=== PATIENT | female | born 1955 ===

== ENCOUNTER 2017-08-30 09:27 | Observation (INO) | payer MEDICAID ==
[2017-08-30 09:29] VITALS: BMI 34.7
--- NOTE | 2017-08-30 10:09 | ED PDOC ---
HPI: Abdomen Time Seen by Provider: 08/30/17 09:34 Chief Complaint (Nursing): Abdominal Pain Chief Complaint (Provider): Urinary urgency associated abdominal pain History Per: Patient History/Exam Limitations: no limitations Onset/Duration Of Symptoms: Days (x2) Additional Complaint(s): Ly Caraballo is a 62 year old female with a past medical history of diverticular disease presenting to the ED for an evaluation of urinary urgency associated with lower abdominal pain occurring for 2 days prior to arrival. She denies fever, diarrhea, or vomiting. PMD: Crow Vasques MD Past Medical History Reviewed: Historical Data, Nursing Documentation, Vital Signs Vital Signs: Last Vital Signs Temp 98.5 F 08/30/17 09:43 Pulse 112 H 08/30/17 09:43 Resp 18 08/30/17 09:43 BP 126/71 08/30/17 09:43 Pulse Ox 96 08/30/17 12:21 - Medical History PMH: Asthma, Diabetes, Diverticulitis, HTN, Hypercholesterolemia - Surgical History Surgical History: Cholecystectomy - Family History Family History: States: Unknown Family Hx - Social History Current smoker - smoking cessation education provided: No Ex-Smoker (has not smoked in the last 12 months): No Alcohol: None Drugs: Denies - Home Medications Home Medications: Ambulatory Orders Medication Instructions Recorded Acetaminophen with Codeine 1 tab PO Q8H #10 tab 02/03/15 [Tylenol with Codeine No. 3 300 mg-30 mg] Enalapril Maleate [Vasotec] 20 mg PO DAILY 02/03/15 Indapamide [Indapamide] 2.5 mg PO DAILY 02/03/15 Metformin Hydrochloride [Metformin] 500 mg PO DAILY 02/03/15 - Allergies Allergies/Adverse Reactions: Allergies Allergy/AdvReac Type Severity Reaction Status Date / Time Penicillins Allergy Intermediate ITCHING Verified 08/30/17 10:18 tramadol AdvReac ITCHING Verified 08/30/17 10:18 Review of Systems ROS Statement: Except As Marked, All Systems Reviewed And Found Negative Constitutional: Negative for: Fever Gastrointestinal: Positive for: Abdominal Pain (lower abdominal pain ). Negative for: Vomiting, Diarrhea Genitourinary Female: Positive for: Frequency (urinary urgency) Physical Exam - Reviewed Nursing Documentation Reviewed: Yes Vital Signs Reviewed: Yes - Physical Exam Appears: Positive for: Non-toxic, No Acute Distress Head Exam: Positive for: ATRAUMATIC, NORMOCEPHALIC Skin: Positive for: Normal Color, Warm, Dry Eye Exam: Positive for: Normal appearance, EOMI ENT: Positive for: Normal ENT Inspection Neck: Positive for: Normal, Painless ROM Cardiovascular/Chest: Positive for: Regular Rate, Rhythm, Chest Non Tender Respiratory: Positive for: Normal Breath Sounds. Negative for: Respiratory Distress Gastrointestinal/Abdominal: Positive for: Soft, Tenderness ( suprapubictenderness ) Back: Negative for: L CVA Tenderness, R CVA Tenderness Extremity: Positive for: Normal ROM. Negative for: Deformity Neurologic/Psych: Positive for: Alert, Oriented (x3). Negative for: Motor/ Sensory Deficits - Laboratory Results Result Diagrams: 08/30/17 10:27 08/30/17 10:27 - ECG O2 Sat by Pulse Oximetry: 96 (RA) Pulse Ox Interpretation: Normal Medical Decision Making Medical Decision Making: Time: 09:34 Impression: Urinary urgency associated with suprapubic tenderness Plan: * Urine Culture * Urinalysis * CMP * CBC (with differential) * Peak Flow Pre/Post Tx * Albuterol 0.083% Inhal Roxanne (2.5 mg/3 ml) UD 2.5 mg INH * KayeXALATE Susp 30 gm PO * CT Abd & Pelvis W/O PO or IV Cont * Reevaluation Scribe Attestation: Documented by Christen Wagoner, acting as a scribe for Nader Lewis MD. Provider Scribe Attestation: All medical record entries made by the Scribe were at my direction and personally dictated by me. I have reviewed the chart and agree that the record accurately reflects my personal performance of the history, physical exam, medical decision making, and the department course for this patient. I have also personally directed, reviewed, and agree with the discharge instructions and disposition. Disposition - Clinical Impression Clinical Impression: Dehydration, CKD (chronic kidney disease), Hyperkalemia - Patient ED Disposition Is Patient to be Admitted: Yes - Disposition Disposition Time: 12:24 Condition: FAIR Forms: [facility] (Pashto) - Pt Status Changed To: Hospital Disposition Of: Observation - POA Present On Arrival: None
[2017-08-30] MEDS ORDERED: Iohexol 300 100 ML IJ ONE (10:20)
[2017-08-30] MEDS ORDERED: Sodium Chloride 0.9% 50 ML IV ONE (10:20)
[2017-08-30 10:37] LABS: BASO # 0.1 K/uL (0.0-0.2); BASO % 1.2 % (0.0-2.0); EOS # 0.3 K/uL (0.0-0.7); EOS % 2.3 % (0.0-4.0); HEMATOCRIT 37.4 % (34.0-47.0); LYMPH # 2.7 K/uL (1.0-4.3); LYMPH % 22.4 % (20.0-40.0); MEAN CELL VOLUME 87.2 fl (81.0-99.0); MEAN CORPUSCULAR HEMOGLOBIN 28.5 pg (27.0-31.0); MEAN CORPUSCULAR HGB CONC 32.6 g/dL (33.0-37.0); MEAN PLATELET VOLUME 8.4 fl (7.2-11.7); MONO % 7.8 % (0.0-10.0); NEUT # 8.1 K/uL (1.8-7.0); NEUT % 66.3 % (50.0-75.0); NRBC % 0.1 % (0.0-0.0); RED CELL DISTRIBUTION WIDTH 14.8 % (11.5-14.5); WHITE BLOOD COUNT 12.2 K/uL (4.8-10.8)
[2017-08-30 10:38] LABS: URINE BACTERIA RARE (<OCC); URINE BILIRUBIN NEGATIVE (NEGATIVE); URINE BLOOD SMALL (NEGATIVE); URINE COLOR YELLOW (YELLOW); URINE GLUCOSE (UA) NEG (Normal); URINE KETONE NEGATIVE (NEGATIVE); URINE LEUKOCYTE ESTERASE TRACE Leu/uL (Negative); URINE PROTEIN 100 mg/dL (NEGATIVE); URINE UROBILINOGEN 0.2-1.0 mg/dL (0.2-1.0)
[2017-08-30 10:50] LABS: RBC URINE 7 /hpf (0-3); WBC URINE 9 /hpf (0-5)
[2017-08-30 10:59] LABS: ALB/GLOB RATIO 1.3 (1.0-2.1); BILIRUBIN,TOTAL 0.6 mg/dl (0.2-1.3); CALCIUM 9.3 mg/dL (8.4-10.2); POTASSIUM 5.8 MMOL/L (3.6-5.0); TOTAL PROTEIN 7.6 G/DL (6.3-8.2)
--- NOTE | 2017-08-30 12:10 | CT ---
PROCEDURE: CT Abdomen and Pelvis without intravenous contrast HISTORY: r/o kidney stone COMPARISON: 2014. TECHNIQUE: Technique. Contrast Dose: Radiation dose: Total exam DLP = mGy-cm. This CT exam was performed using one or more of the following dose reduction techniques: Automated exposure control, adjustment of the mA and/or kV according to patient size, and/or use of iterative reconstruction technique. FINDINGS: LOWER THORAX: Unremarkable. LIVER: Unremarkable. No gross lesion or ductal dilatation. GALLBLADDER AND BILE DUCTS: Gallbladder resected.. PANCREAS: Unremarkable. No gross lesion or ductal dilatation. SPLEEN: Unremarkable. ADRENALS: Unremarkable. No mass. KIDNEYS AND URETERS: Unremarkable. No hydronephrosis. No solid mass. VASCULATURE: Unremarkable. No aortic aneurysm. BOWEL: Colonic diverticulosis.. No obstruction. No gross mural thickening. APPENDIX: Unremarkable. Normal appendix. PERITONEUM: Unremarkable. No free fluid. No free air. LYMPH NODES: Unremarkable. No enlarged lymph nodes. BLADDER: Unremarkable. REPRODUCTIVE: Uterus resected. me. BONES: No acute fracture. OTHER FINDINGS: None. IMPRESSION: Diverticulosis. No acute pathology..
[2017-08-30] MEDS ORDERED: Albuterol 0.083% Inhal Sol (2.5 mg/3 mL) UD INH STA (12:16)
[2017-08-30] MEDS ORDERED: Sod Polystyrene Sulf 15 gm/60 ml Susp PO ONE (12:16)
[2017-08-30] MEDS ORDERED: Sodium Chloride 0.9% 1,000 ML IV STA (12:21)
[2017-08-30] MEDS ORDERED: Albuterol 0.083% Inhal Sol (2.5 mg/3 mL) UD ONE (12:56)
[2017-08-30] MEDS ORDERED: Sod Polystyrene Sulf 15 gm/60 ml Susp ONE (12:57)
--- NOTE | 2017-08-30 14:38 | US ---
PROCEDURE: HISTORY: acute on chronic renal dz COMPARISON: TECHNIQUE: FINDINGS: The right and left kidney measure 10.2 and 9.1 centimeters respectively without hydronephrosis or renal calculi. The renal cortices are homogeneous but somewhat echogenic suggesting underlying medical renal disease. The urinary bladder is unremarkable. IMPRESSION: Mild bilateral increased cortical echogenicity suggesting medical renal disease.
--- NOTE | 2017-08-30 14:55 | RAD ---
HISTORY: CKD COMPARISON: No prior. TECHNIQUE: Chest PA and lateral FINDINGS: LUNGS: No active pulmonary disease. PLEURA: No significant pleural effusion identified. No pneumothorax apparent. CARDIOVASCULAR: Normal. OSSEOUS STRUCTURES: No significant abnormalities. VISUALIZED UPPER ABDOMEN: Normal. OTHER FINDINGS: None. IMPRESSION: No active disease.
--- NOTE | 2017-08-30 18:42 | CP.PCM.CON ---
History of Present Illness - History of Present Illness History of Present Illness: Initial Nephrology Consultation: Assessment: Stable possible UTI ? Acute Kidney Injury (N17.9) possible due to dehydration Hypertensive Chronic Kidney Disease (I12.9) Chronic Kidney Disease (N18.3) Stage 3 with proteinuria (R80.9) likely due to HTN Hyperkalemia, HTN (I12.9) DM, diverticulosis Plan No acute need for renal replacement therapy at this time. Hypertension control with meds as ordered. No ACEI/ARB due to elevated K. agree with medical management with kayexylate Monitor Input/Output, daily weights and renal function with basic metabolic panel continue with IVF. low K diet Check urine spot protein/creatinine and albumin/creatinine ratio Dose meds/antibiotics for reduced GFR. Avoid fleets enema/magnesium based laxatives. Avoid nephrotoxins/NSAIDs/ iodinated contrast (unless needed emergently) Glycemic control Further work up/management as per primary team Thanks for allowing me to participate in care of your patient. Will follow patient with you. Please call if any Qs Dr Anselmo Pollock Office: [phone] Chief Complaint; urinary urgency Reason for consult: SHEREE and hyperkalemia HPI: Pt is a 62 y/o F with hx of diabetes Mellitus ( 5 years), hypertension (5 years), diverticulosis presented with complaints of urinary symptoms as urgency and lower abdomen pain/pressure like sensation for last 1-2 days which is not improving renal consulted as K 5.8 and Cr 1.4. hasn't eaten all day today Denies chest pain, palpitation, shortness of breath, leg swelling Denies blood or bubbles in urine. has urinary complaints Denies OTC/herbal meds or NSAIDs No recent iodinated contrast exposure. No obvious episodes of low BP. ROS: Constitutional Symptoms: Denies fever. No chills. No Recent Weight Changes Eyes: denies change in vision, denies watery eyes, denies double vision Ears/Nose/Mouth/Throat: Denies Abnormal Taste. No Bad breath no Bad Taste. Cardiovascular: No chest pain. There is no shortness of breath. No palpitations. Pulmonary: No shortness of breath no cough. Gastrointestinal: c/o lower abdominal pain No nausea. No vomiting. Denies change in bowel habits. Denies Bleeding Genitourinary: No Change in force of strain when urinating. c/o increase in urinary frequency. c/o pain while urinating. Denies blood in urine. Neurological: Denies headaches. No dizziness. Denies loss of balance. Denies weakness, denies tingling/numbness Dermatological: No Rash or Bruising or ulcers. Psychiatric: Denies Anxiety. No depression. Denies hallucinations. Rheumatological: No joint pain. Denies Joint swelling Endocrine: Denies tiredness/Fatigue denies Heat/Cold Intolerance. All other negative Physical Examination: General Appearance: Comfortable, in no acute respiratory distress, co-operative . Vitals reviewed and noted as below Head; Atraumatic, normocephalic ENT: no ulcers no thrush. Tongue is midline. Oropharynx: no rash or ulcers. EYES: Pupils are equal, round and reactive to light accommodation. Eye muscles and extraocular movement intact. Sclera is anicteric. Neck; supple no lymphadenopathy, no thyromegaly or bruit Lungs: Normal respiratory rate/effort. Breath sounds bilateral equal and clear Heart: Normal rate. s1s2 normal. No rub or gallop. Extremities: no edema. No varicose veins Neurological: Patient is alert, awake and oriented to person, place and time. No focal deficit. Strength bilateral appropriate and equal Skin: Warm and dry. Normal turgor. No rash. Palpitation: Normal elasticity for age Abdomen: Abdomen is soft. Bowel sounds +. There is suprapubic abdominal tenderness, no guarding/rigidity no organomegaly Psych: normal insight and normal affect/mood MSK: no joint tenderness or swelling. Digits and nails normal, no deformity : kidney or bladder not palpable Labs/imaging/EKG reviewed. Past medical history, past surgical history, family history, social history, allergy reviewed and noted as below Family hx: no hx of CKD. Rest non-contributory UA: small blood and 100 protein with bacteria renal sono: increased echogenicity s/o medical renal disease cr 1.2 in 2015 Past Patient History - Past Social History Alcohol: None Drugs: Denies - CARDIAC Hx Cardiac Disorders: Yes (HTN, hypercholesterolemia) - PULMONARY Hx Respiratory Disorders: Yes (Asthma) - ENDOCRINE/METABOLIC Hx Endocrine Disorders: Yes (DM, Diverticulosis) - GASTROINTESTINAL Hx Diverticulitis: Yes - PSYCHIATRIC Hx Substance Use: No - SURGICAL HISTORY Hx Cholecystectomy: Yes - ANESTHESIA Hx Anesthesia: Yes Hx Anesthesia Reactions: No Meds Allergies/Adverse Reactions: Allergies Allergy/AdvReac Type Severity Reaction Status Date / Time Penicillins Allergy Intermediate ITCHING Verified 08/30/17 10:18 tramadol AdvReac ITCHING Verified 08/30/17 10:18 - Medications Medications: Current Medications Sodium Chloride (Sodium Chloride 0.9%) 1,000 mls @ 100 mls/hr IV .Q10H STA Stop: 08/30/17 22:20 Last Admin: 08/30/17 13:00 Dose: 100 mls/hr Sodium Chloride (Sodium Chloride 0.9%) 1,000 mls @ 100 mls/hr IV .Q10H YUMIKO Stop: 08/31/17 13:02 Metformin HCl (Glucophage) 500 mg PO DAILY YUMIKO Results - Vital Signs Recent Vital Signs: Last Vital Signs Temp 98.3 F 08/30/17 16:18 Pulse 108 H 08/30/17 16:18 Resp 20 08/30/17 16:18 BP 114/70 08/30/17 16:18 Pulse Ox 93 L 08/30/17 16:18 - Labs Result Diagrams: 08/30/17 10:27 08/30/17 10:27 Labs: Laboratory Results - last 24 hr 08/30/17 08/30/17 08/30/17 10:27 10:27 10:27 WBC 12.2 H RBC 4.28 Hgb 12.2 Hct 37.4 MCV 87.2 D MCH 28.5 MCHC 32.6 L RDW 14.8 H Plt Count 243 MPV 8.4 Neut % (Auto) 66.3 Lymph % (Auto) 22.4 [place] % (Auto) 7.8 Eos % (Auto) 2.3 Baso % (Auto) 1.2 Neut # 8.1 H Lymph # 2.7 [place] # 1.0 H Eos # 0.3 Baso # 0.1 Sodium 143 Potassium 5.8 H Chloride 108 H Carbon Dioxide 25 Anion Gap 16 BUN 38 H Creatinine 1.4 H Est GFR ( Amer) 46 Est GFR (Non-Af Amer) 38 Random Glucose 131 H Calcium 9.3 Total Bilirubin 0.6 AST 21 ALT 37 Alkaline Phosphatase 108 Total Protein 7.6 Albumin 4.3 Globulin 3.3 Albumin/Globulin Ratio 1.3 Urine Color Yellow Urine Clarity Slighty-cloudy Urine pH 5.0 Ur Specific [place] 1.019 Urine Protein 100 Urine Glucose (UA) Neg Urine Ketones Negative Urine Blood Small Urine Nitrate Negative Urine Bilirubin Negative Urine Urobilinogen 0.2-1.0 Ur Leukocyte Esterase Trace Urine RBC (Auto) 7 H Urine Microscopic WBC 9 H Ur Squamous Epith Cells 2 Urine Bacteria Rare
[2017-08-30] MEDS ORDERED: Oxycodone/Acetaminophen 5/325 mg Tab PO PRN ×2 (20:37→20:40)
[2017-08-30] MEDS ORDERED: DiphenhydrAMINE 50 mg/ml Inj IVP PRN (20:40)
[2017-08-30] MEDS: Sodium Chloride 0.9% 1,000 ML IV SCH (23:32)
[2017-08-31 00:49] VITALS: RESP 18
[2017-08-31 08:12] LABS: BASO # 0.1 K/uL (0.0-0.2); BASO % 0.4 % (0.0-2.0); EOS # 0.2 K/uL (0.0-0.7); EOS % 1.4 % (0.0-4.0); HEMATOCRIT 33.9 % (34.0-47.0); LYMPH # 1.8 K/uL (1.0-4.3); LYMPH % 14.6 % (20.0-40.0); MEAN CELL VOLUME 85.9 fl (81.0-99.0); MEAN CORPUSCULAR HEMOGLOBIN 28.3 pg (27.0-31.0); MEAN CORPUSCULAR HGB CONC 32.9 g/dL (33.0-37.0); MEAN PLATELET VOLUME 8.5 fl (7.2-11.7); MONO % 8.5 % (0.0-10.0); NEUT # 9.2 K/uL (1.8-7.0); NEUT % 75.1 % (50.0-75.0); NRBC % 0.1 % (0.0-0.0); RED CELL DISTRIBUTION WIDTH 14.8 % (11.5-14.5); WHITE BLOOD COUNT 12.2 K/uL (4.8-10.8)
[2017-08-31] MEDS: Sodium Chloride 0.9% 1,000 ML IV SCH (08:16)
[2017-08-31 08:31] VITALS: O2SAT 95
[2017-08-31 08:38] LABS: ALB/GLOB RATIO 1.3 (1.0-2.1); BILIRUBIN,TOTAL 0.8 mg/dl (0.2-1.3); CALCIUM 8.8 mg/dL (8.4-10.2); POTASSIUM 4.6 MMOL/L (3.6-5.0); TOTAL PROTEIN 6.8 G/DL (6.3-8.2)
--- NOTE | 2017-08-31 10:00 | CP.PCM.HP ---
History of Present Illness - History of Present Illness History of Present Illness: pt admitted for acute on ckd. also w/ lower abd pain in the location of her diverticular dz which she is scheduled for surgical repair/hemicolectomy at [facility]. at present. pain controlled. no f/c, n/v/d. bw improved bun, k normal. cr about same. us noted. case d/c w/ dr lauren. Present on Admission - Present on Admission Any Indicators Present on Admission: No Review of Systems - Gastrointestinal Gastrointestinal: As Per HPI, Abdominal Pain Past Patient History - Past Medical History & Family History Past Medical History?: Yes - Past Social History Alcohol: None Drugs: Denies - CARDIAC Hx Cardiac Disorders: Yes (HTN, hypercholesterolemia) - PULMONARY Hx Respiratory Disorders: Yes (Asthma) - NEUROLOGICAL Hx Neurological Disorder: No - HEENT Hx HEENT Problems: No - RENAL Hx Chronic Kidney Disease: No - ENDOCRINE/METABOLIC Hx Endocrine Disorders: Yes (DM, Diverticulosis) - HEMATOLOGICAL/ONCOLOGICAL Hx Blood Disorders: No Hx AIDS: No Hx Human Immunodeficiency Virus (HIV): No - INTEGUMENTARY Hx Dermatological Problems: No - MUSCULOSKELETAL/RHEUMATOLOGICAL Hx Musculoskeletal Disorders: No Hx Falls: No - GASTROINTESTINAL Hx Diverticulitis: Yes - GENITOURINARY/GYNECOLOGICAL Hx Genitourinary Disorders: No - PSYCHIATRIC Hx Substance Use: No - SURGICAL HISTORY Hx Cholecystectomy: Yes - ANESTHESIA Hx Anesthesia: Yes Hx Anesthesia Reactions: No Meds Home Medications: Home Medication List Medication Instructions Recorded Confirmed Type levoFLOXacin [Levaquin] 250 mg PO DAILY #1 tab 08/31/17 Rx Allergies/Adverse Reactions: Allergies Allergy/AdvReac Type Severity Reaction Status Date / Time Penicillins Allergy Intermediate ITCHING Verified 08/30/17 10:18 tramadol AdvReac ITCHING Verified 08/30/17 10:18 Physical Exam - Constitutional Appears: Well, Non-toxic, No Acute Distress - Head Exam Head Exam: ATRAUMATIC, NORMAL INSPECTION, NORMOCEPHALIC - Eye Exam Eye Exam: EOMI, Normal appearance, PERRL Pupil Exam: NORMAL ACCOMODATION, PERRL - ENT Exam ENT Exam: Mucous Membranes Moist, Normal Exam - Neck Exam Neck exam: Positive for: Normal Inspection - Respiratory Exam Respiratory Exam: Clear to Auscultation Bilateral, NORMAL BREATHING PATTERN - Cardiovascular Exam Cardiovascular Exam: REGULAR RHYTHM - GI/Abdominal Exam GI & Abdominal Exam: Normal Bowel Sounds, Soft, Tenderness Additional comments: suprapubic - Extremities Exam Extremities exam: Positive for: full ROM, normal capillary refill, normal inspection, pedal pulses present - Back Exam Back exam: NORMAL INSPECTION - Neurological Exam Neurological exam: Alert, CN II-XII Intact, Normal Gait, Oriented x3, Reflexes Normal - Psychiatric Exam Psychiatric exam: Normal Affect, Normal Mood - Skin Skin Exam: Dry, Intact, Normal Color, Warm Results - Vital Signs Recent Vital Signs: Last Vital Signs Temp 98.7 F 08/31/17 08:00 Pulse 113 H 08/31/17 08:00 Resp 18 08/31/17 08:00 BP 123/78 08/31/17 08:00 Pulse Ox 95 08/31/17 08:00 - Labs Result Diagrams: 08/31/17 06:30 08/31/17 06:30 Labs: Laboratory Results - last 24 hr 08/30/17 08/30/17 08/30/17 10:27 10:27 10:27 WBC 12.2 H RBC 4.28 Hgb 12.2 Hct 37.4 MCV 87.2 D MCH 28.5 MCHC 32.6 L RDW 14.8 H Plt Count 243 MPV 8.4 Neut % (Auto) 66.3 Lymph % (Auto) 22.4 [place] % (Auto) 7.8 Eos % (Auto) 2.3 Baso % (Auto) 1.2 Neut # 8.1 H Lymph # 2.7 [place] # 1.0 H Eos # 0.3 Baso # 0.1 Sodium 143 Potassium 5.8 H Chloride 108 H Carbon Dioxide 25 Anion Gap 16 BUN 38 H Creatinine 1.4 H Est GFR ( Amer) 46 Est GFR (Non-Af Amer) 38 POC Glucose (mg/dL) Random Glucose 131 H Serum Osmolality Calcium 9.3 Total Bilirubin 0.6 AST 21 ALT 37 Alkaline Phosphatase 108 Total Protein 7.6 Albumin 4.3 Globulin 3.3 Albumin/Globulin Ratio 1.3 Urine Color Yellow Urine Clarity Slighty-cloudy Urine pH 5.0 Ur Specific [place] 1.019 Urine Protein 100 Urine Glucose (UA) Neg Urine Ketones Negative Urine Blood Small Urine Nitrate Negative Urine Bilirubin Negative Urine Urobilinogen 0.2-1.0 Ur Leukocyte Esterase Trace Urine RBC (Auto) 7 H Urine Microscopic WBC 9 H Ur Squamous Epith Cells 2 Urine Bacteria Rare Urine Osmolality 08/31/17 08/31/17 08/31/17 06:11 06:30 06:30 WBC 12.2 H RBC 3.95 Hgb 11.2 L Hct 33.9 L MCV 85.9 MCH 28.3 MCHC 32.9 L RDW 14.8 H Plt Count 239 MPV 8.5 Neut % (Auto) 75.1 H Lymph % (Auto) 14.6 L [place] % (Auto) 8.5 Eos % (Auto) 1.4 Baso % (Auto) 0.4 Neut # 9.2 H Lymph # 1.8 [place] # 1.0 H Eos # 0.2 Baso # 0.1 Sodium 143 Potassium 4.6 Chloride 108 H Carbon Dioxide 26 Anion Gap 14 BUN 28 H Creatinine 1.3 H Est GFR ( Amer) 50 Est GFR (Non-Af Amer) 41 POC Glucose (mg/dL) 131 H Random Glucose 150 H Serum Osmolality Calcium 8.8 Total Bilirubin 0.8 AST 18 ALT 30 Alkaline Phosphatase 100 Total Protein 6.8 Albumin 3.8 Globulin 2.9 Albumin/Globulin Ratio 1.3 Urine Color Urine Clarity Urine pH Ur Specific [place] Urine Protein Urine Glucose (UA) Urine Ketones Urine Blood Urine Nitrate Urine Bilirubin Urine Urobilinogen Ur Leukocyte Esterase Urine RBC (Auto) Urine Microscopic WBC Ur Squamous Epith Cells Urine Bacteria Urine Osmolality 08/31/17 08/31/17 06:30 07:01 WBC RBC Hgb Hct MCV MCH MCHC RDW Plt Count MPV Neut % (Auto) Lymph % (Auto) [place] % (Auto) Eos % (Auto) Baso % (Auto) Neut # Lymph # [place] # Eos # Baso # Sodium Potassium Chloride Carbon Dioxide Anion Gap BUN Creatinine Est GFR ( Amer) Est GFR (Non-Af Amer) POC Glucose (mg/dL) Random Glucose Serum Osmolality 309 H Calcium Total Bilirubin AST ALT Alkaline Phosphatase Total Protein Albumin Globulin Albumin/Globulin Ratio Urine Color Urine Clarity Urine pH Ur Specific [place] Urine Protein Urine Glucose (UA) Urine Ketones Urine Blood Urine Nitrate Urine Bilirubin Urine Urobilinogen Ur Leukocyte Esterase Urine RBC (Auto) Urine Microscopic WBC Ur Squamous Epith Cells Urine Bacteria Urine Osmolality 461 Assessment & Plan (1) DVT prophylaxis Assessment and Plan: scd and ae hose ambulation Status: Acute (2) CKD (chronic kidney disease) Assessment and Plan: improved w/ kayexalate, fluids for dc to f/u nephro outpt Status: Acute (3) Dehydration Assessment and Plan: improved w/ ivf Status: Acute (4) Hyperkalemia Assessment and Plan: improved w/ meds, fluids Status: Acute (5) HTN (hypertension) Assessment and Plan: lisinopril dc hold meds for now as bp controlled ?? acei cause of hyperkalemia Status: Acute Decision To Admit - Pt Status Changed To: Hospital Disposition Of: Observation - . Bed Request Type: Telemetry Admitting Physician: Jerome Arnold
[2017-08-31 12:05] VITALS: BP 118/75; PULSE 109; TEMP 98.3
--- NOTE | 2017-08-31 14:19 | CARD ---
APPROVED REPORT EKG Measurement Heart [id number] [id number] <Conclusion> Normal sinus rhythm Normal ECG
== END 2017-08-31 14:31 | disposition home or self-care (01) ==
LOC: H.ER 09:27 → H.ERHOLD 12:22 → H.TEL 15:18
PROVIDERS: ADMIT Family Medicine; ATTEND Family Medicine
DX: N28.9 Disorder of kidney and ureter, unspecified (principal); R39.15 Urgency of urination; I12.9 Hypertensive chronic kidney disease with stage 1 through stage 4 chronic kidney disease, or unspecified chronic kidney disease; N18.3 Chronic kidney disease, stage 3 (moderate); E11.22 Type 2 diabetes mellitus with diabetic chronic kidney disease; E86.0 Dehydration; K57.90 Diverticulosis of intestine, part unspecified, without perforation or abscess without bleeding; E87.5 Hyperkalemia; Z88.6 Allergy status to analgesic agent; Z88.0 Allergy status to penicillin; J45.909 Unspecified asthma, uncomplicated; E78.00 Pure hypercholesterolemia, unspecified
CPT/HCPCS: 36415; 71020; 74176; 76770; 80053; 81003; 82948; 83930; 83935; 85025; 87086; 93005; 99285; G0378; J7040; Q9967

== ENCOUNTER 2018-03-23 19:25 | Inpatient (IN) | payer MEDICAID ==
[2018-03-23 19:25] VITALS: BMI 34.7
[2018-03-23] MEDS ORDERED: Sodium Chloride 0.9% 1,000 ML IV STA (20:17)
--- NOTE | 2018-03-23 20:21 | ED PDOC ---
HPI: Chest Pain Time Seen by Provider: 03/23/18 20:06 Chief Complaint (Nursing): Chest Pain Chief Complaint (Provider): chest pain History Per: Patient, Family History/Exam Limitations: no limitations Onset/Duration Of Symptoms: Days (2), Waxing/Waning Current Symptoms Are (Timing): Still Present Quality: "Pain" Additional Complaint(s): 62 y/o female presents for evaluation of midsternal chest pain x 2 days. Associated shortness of breath. Patient states pain radiates from chest to upper back, left side of neck and occasionally from upper abdomen. Patient reports low grade temp of 100F yesterday. Patient was evaluated by PMD today and advised to come to ED for chest xray. Denies headache, dizziness, extremity numbness/weakness, vision changes, cough, congestion, vomiting, urinary symptoms, changes in bowel movements. Patient was scheduled for colostomy reversal tomorrow but PMD cancelled it due to current symptoms. PMD: Dr. Terri Hanna Past Medical History Reviewed: Historical Data, Nursing Documentation, Vital Signs Vital Signs: Last Vital Signs Temp 99.1 F 03/23/18 19:35 Pulse 121 H 03/23/18 19:35 Resp 16 03/23/18 19:35 BP 133/79 03/23/18 19:35 Pulse Ox 96 03/23/18 23:17 - Medical History PMH: Asthma, Diabetes, Diverticulitis, HTN, Hypercholesterolemia Denies: HIV, Chronic Kidney Disease - Surgical History Surgical History: Cholecystectomy - Family History Family History: States: Unknown Family Hx - Social History Current smoker - smoking cessation education provided: No Ex-Smoker (has not smoked in the last 12 months): Yes Alcohol: None Drugs: Denies - Allergies Allergies/Adverse Reactions: Allergies Allergy/AdvReac Type Severity Reaction Status Date / Time Penicillins Allergy Intermediate ITCHING Verified 08/30/17 10:18 tramadol AdvReac ITCHING Verified 08/30/17 10:18 Review of Systems ROS Statement: Except As Marked, All Systems Reviewed And Found Negative Cardiovascular: Positive for: Chest Pain Respiratory: Positive for: Shortness of Breath Physical Exam - Reviewed Nursing Documentation Reviewed: Yes Vital Signs Reviewed: Yes - Physical Exam Appears: Positive for: Well, Non-toxic, No Acute Distress Head Exam: Positive for: ATRAUMATIC, NORMAL INSPECTION, NORMOCEPHALIC Skin: Positive for: Normal Color Eye Exam: Positive for: Normal appearance ENT: Positive for: Normal ENT Inspection Cardiovascular/Chest: Positive for: Regular Rate, Rhythm Respiratory: Positive for: Normal Breath Sounds Gastrointestinal/Abdominal: Positive for: Bowel Sounds, Soft, Other (colostomy bag right abdomen; no erythema, drainage, tenderness noted). Negative for: Tenderness Back: Positive for: Normal Inspection Extremity: Positive for: Normal ROM Neurologic/Psych: Positive for: Alert, Oriented - Laboratory Results Result Diagrams: 03/23/18 20:49 03/23/18 20:49 - ECG ECG: Positive for: Viewed By Me (reviewed by ED attending) ECG Rhythm: Positive for: Sinus Tachycardia O2 Sat by Pulse Oximetry: 96 Pulse Ox Interpretation: Normal - Radiology X-Ray: Viewed By Me X-Ray Interpretation: No Acute Disease - Progress ED Course And Treament: labs, urine, flu, strep, chest xray, ekg, IV fluids EXAM: CT Angiography Chest With Intravenous Contrast CLINICAL HISTORY: The patient is a 62 years female; Pain; Chest pain; Type not specified; Patient HX: Asthma; Additional info: Chest pain, SOB 03/23/2018 9:32 PM TECHNIQUE: Axial computed tomographic angiography images of the chest with intravenous contrast using pulmonary embolism protocol. All CT scans at this facility use one or more dose reduction techniques, viz.: automated exposure control; ma/kV adjustment per patient size (including targeted exams where dose is matched to indication; i.e. head); or iterative reconstruction technique. MIP reconstructed images were created and reviewed. Coronal and sagittal reformatted images were created and reviewed. CONTRAST: 70 mL of [id number] administered intravenously. COMPARISON: Not available FINDINGS: Pulmonary arteries: No evidence of acute pulmonary embolism up to the major segmental level.One or more very small peripheral pulmonary emboli cannot be excluded. Correlate clinically. Aorta: No acute findings. No thoracic aortic aneurysm. Lungs: Patchy and streaky opacities in the right lung base could either represent subsegmental atelectasis and/or developing infiltrate. Correlate clinically. Granuloma in the right upper lobe Pleural space: Small to moderate left pleural effusion with adjacent compressive atelectasis and/or infiltrates. Correlate clinically. No pneumothorax. Heart: Small pericardial effusion. No evidence of RV dysfunction. Bones/joints: Spondylosis. No dislocation. Soft tissues: Unremarkable. Lymph nodes: Unremarkable. No enlarged lymph nodes. IMPRESSION: 1. No evidence of acute pulmonary embolism up to the major segmental level.One or more very small peripheral pulmonary emboli cannot be excluded. Correlate clinically. 2. Small to moderate left pleural effusion with adjacent compressive atelectasis and/or infiltrates. Correlate clinically. 3. Patchy and streaky opacities in the right lung base could either represent subsegmental atelectasis and/or developing infiltrate. Correlate clinically. 4. Small pericardial effusion. IV Levaquin (PCN allergy), PO asa ordered Case discussed with Dilan Lau for admission; recommends cardio consult with Dr. Reeves Case discussed with Dr. Reeves, Cardiology, for consult; recommends AM echo Disposition - Clinical Impression Clinical Impression: Pneumonia, Non-ST elevation [place] (NSTEMI) - Patient ED Disposition Is Patient to be Admitted: Yes - Disposition Disposition Time: 23:45 Condition: FAIR
[2018-03-23 21:02] LABS: BASO # 0.1 K/uL (0.0-0.2); BASO % 0.7 % (0.0-2.0); EOS % 0.3 % (0.0-4.0); HEMOGLOBIN 11.1 g/dL (12.0-16.0); LYMPH % 15.4 % (20.0-40.0); MEAN CELL VOLUME 87.2 fl (81.0-99.0); MEAN CORPUSCULAR HEMOGLOBIN 28.3 pg (27.0-31.0); MEAN CORPUSCULAR HGB CONC 32.4 g/dL (33.0-37.0); MONO # 0.9 K/uL (0.0-0.8); MONO % 7.1 % (0.0-10.0); NEUT # 9.9 K/uL (1.8-7.0); NEUT % 76.5 % (50.0-75.0); RBC 3.92 Mil/uL (3.80-5.20); RED CELL DISTRIBUTION WIDTH 16.1 % (11.5-14.5)
[2018-03-23 21:08] LABS: ALB/GLOB RATIO 1.1 (1.0-2.1); ALBUMIN 4.1 g/dL (3.5-5.0); CALCIUM 9.2 mg/dL (8.4-10.2)
[2018-03-23 21:09] LABS: VENOUS BLOOD GAS PCO2 52 mmHg (40-60); VENOUS BLOOD GAS PO2 20 mm/Hg (30-55)
[2018-03-23 21:26] LABS: INR 1.2 (0.9-1.2); PARTIAL THROMBOPLASTIN TIME 35.6 Seconds (25.6-37.1); PROTHROMBIN TIME 13.4 Seconds (9.8-13.1)
[2018-03-23 21:31] LABS: TROPONIN I 0.397 ng/mL (0.00-0.120)
[2018-03-23] MEDS ORDERED: Iodixanol 320 MG/ML 100 ML BOTTLE IV ONE (21:59)
[2018-03-23] MEDS ORDERED: Sodium Chloride 0.9% 50 ML IV ONE (21:59)
[2018-03-23 22:56] LABS: SQUAMOUS EPITHIAL 1 /hpf (0-5); URINE BACTERIA RARE (<OCC); URINE BILIRUBIN NEGATIVE (NEGATIVE); URINE BLOOD SMALL (NEGATIVE); URINE CLARITY SLIGHTY-CLOUDY (Clear); URINE COLOR YELLOW (YELLOW); URINE GLUCOSE (UA) NEG (Normal); URINE LEUKOCYTE ESTERASE LARGE Leu/uL (Negative); URINE PROTEIN 100 mg/dL (NEGATIVE); URINE UROBILINOGEN 0.2-1.0 mg/dL (0.2-1.0)
[2018-03-23] MEDS ORDERED: levoFLOXacin 750 mg in D5W 150 ML BAG IVPB STA (23:03)
[2018-03-23] MEDS ORDERED: Promethazine DM 6.25 mg-15 mg/5 ml Syrup PO PRN (23:11)
[2018-03-23] MEDS ORDERED: Albuterol-Ipratrop 3 mg / 0.5 (3 ml) UD INH PRN (23:11)
[2018-03-23] MEDS ORDERED: levoFLOXacin 750 mg in D5W 750 MG/150 ML BAG IVPB STA (23:15)
[2018-03-23] MEDS ORDERED: levoFLOXacin 750 mg in D5W 750 MG/150 ML BAG IVPB ONE (23:55)
[2018-03-24] MEDS: Sodium Chloride 0.9% 1,000 ML IV SCH ×3 (00:16→22:31)
[2018-03-24 04:38] LABS: BASO # 0.1 K/uL (0.0-0.2); BASO % 1.1 % (0.0-2.0); EOS # 0.1 K/uL (0.0-0.7); HEMOGLOBIN 11.4 g/dL (12.0-16.0); LYMPH # 2.7 K/uL (1.0-4.3); LYMPH % 22.1 % (20.0-40.0); MEAN CELL VOLUME 86.9 fl (81.0-99.0); MEAN CORPUSCULAR HEMOGLOBIN 28.5 pg (27.0-31.0); MEAN CORPUSCULAR HGB CONC 32.9 g/dL (33.0-37.0); MONO # 1.1 K/uL (0.0-0.8); MONO % 8.8 % (0.0-10.0); NEUT # 8.1 K/uL (1.8-7.0); RBC 3.98 Mil/uL (3.80-5.20); RED CELL DISTRIBUTION WIDTH 15.6 % (11.5-14.5); WHITE BLOOD COUNT 12.1 K/uL (4.8-10.8)
[2018-03-24 05:02] LABS: ALB/GLOB RATIO 1.1 (1.0-2.1); CALCIUM 9.2 mg/dL (8.4-10.2); TROPONIN I 0.236 ng/mL (0.00-0.120)
--- NOTE | 2018-03-24 07:55 | CP.PCM.HP ---
History of Present Illness - History of Present Illness History of Present Illness: pt admitted for cp found to have pos trop and ?? early pna in er all labs and imaging noted pt has colostomy r abd and was supposed to have reversal today cardio consult pending. on levaquin Present on Admission - Present on Admission Any Indicators Present on Admission: No Review of Systems - Cardiovascular Cardiovascular: As Per HPI, Chest Pain, Dyspnea on Exertion Past Patient History - Past Medical History & Family History Past Medical History?: Yes - Past Social History Alcohol: None Drugs: Denies - CARDIAC Hx Cardiac Disorders: Yes - PULMONARY Hx Asthma: Yes - NEUROLOGICAL Hx Neurological Disorder: No - HEENT Hx HEENT Problems: No - RENAL Hx Chronic Kidney Disease: No - ENDOCRINE/METABOLIC Hx Endocrine Disorders: Yes (DM, Diverticulosis) - HEMATOLOGICAL/ONCOLOGICAL Hx Human Immunodeficiency Virus (HIV): No - INTEGUMENTARY Hx Dermatological Problems: No - MUSCULOSKELETAL/RHEUMATOLOGICAL Hx Musculoskeletal Disorders: No Hx Falls: No - GASTROINTESTINAL Hx Diverticulitis: Yes - GENITOURINARY/GYNECOLOGICAL Hx Genitourinary Disorders: No - PSYCHIATRIC Hx Psychophysiologic Disorder: No Hx Substance Use: No - SURGICAL HISTORY Hx Cholecystectomy: Yes - ANESTHESIA Hx Anesthesia: Yes Hx Anesthesia Reactions: No Meds Allergies/Adverse Reactions: Allergies Allergy/AdvReac Type Severity Reaction Status Date / Time Penicillins Allergy Intermediate ITCHING Verified 08/30/17 10:18 tramadol AdvReac ITCHING Verified 08/30/17 10:18 Physical Exam - Constitutional Appears: Well, Non-toxic, No Acute Distress - Head Exam Head Exam: ATRAUMATIC, NORMAL INSPECTION, NORMOCEPHALIC - Eye Exam Eye Exam: EOMI, Normal appearance, PERRL Pupil Exam: NORMAL ACCOMODATION, PERRL - ENT Exam ENT Exam: Mucous Membranes Moist, Normal Exam - Neck Exam Neck exam: Positive for: Normal Inspection - Respiratory Exam Respiratory Exam: Clear to Auscultation Bilateral, NORMAL BREATHING PATTERN - Cardiovascular Exam Cardiovascular Exam: REGULAR RHYTHM, RRR, +S1, +S2 - GI/Abdominal Exam GI & Abdominal Exam: Normal Bowel Sounds, Soft. absent: Tenderness - Extremities Exam Extremities exam: Positive for: full ROM, normal capillary refill, normal inspection, pedal pulses present - Back Exam Back exam: NORMAL INSPECTION - Neurological Exam Neurological exam: Alert, CN II-XII Intact, Normal Gait, Oriented x3, Reflexes Normal - Psychiatric Exam Psychiatric exam: Normal Affect, Normal Mood - Skin Skin Exam: Dry, Intact, Normal Color, Warm Results - Vital Signs Recent Vital Signs: Last Vital Signs Temp 99.1 F 03/23/18 19:35 Pulse 91 H 03/24/18 06:51 Resp 17 03/24/18 06:51 BP 133/79 03/23/18 19:35 Pulse Ox 99 03/24/18 06:51 - Labs Result Diagrams: 03/24/18 04:25 03/24/18 04:25 Labs: Laboratory Results - last 24 hr 03/23/18 03/23/18 03/23/18 20:49 20:49 20:49 WBC 13.0 H RBC 3.92 Hgb 11.1 L Hct 34.1 MCV 87.2 MCH 28.3 MCHC 32.4 L RDW 16.1 H Plt Count 246 MPV 8.0 Neut % (Auto) 76.5 H Lymph % (Auto) 15.4 L [place] % (Auto) 7.1 Eos % (Auto) 0.3 Baso % (Auto) 0.7 Neut # (Auto) 9.9 H Lymph # (Auto) 2.0 [place] # (Auto) 0.9 H Eos # (Auto) 0.0 Baso # (Auto) 0.1 PT 13.4 H INR 1.2 APTT 35.6 D-Dimer, Quantitative 726 H pO2 VBG pH VBG pCO2 VBG HCO3 VBG Total CO2 VBG O2 Sat (Calc) VBG Base Excess VBG Potassium Glucose Lactate FiO2 Sodium 143 Potassium 4.3 Chloride 101 Carbon Dioxide 29 Anion Gap 17 BUN 21 H Creatinine 1.3 H Est GFR ( Amer) 50 Est GFR (Non-Af Amer) 41 Random Glucose 141 H Calcium 9.2 Total Bilirubin 1.7 H AST 29 ALT 41 Alkaline Phosphatase 97 Troponin I 0.3970 H* NT-Pro-B Natriuret Pep 561 Total Protein 7.7 Albumin 4.1 Globulin 3.7 Albumin/Globulin Ratio 1.1 Lipase 52 Venous Blood Potassium Urine Color Urine Clarity Urine pH Ur Specific [place] Urine Protein Urine Glucose (UA) Urine Ketones Urine Blood Urine Nitrate Urine Bilirubin Urine Urobilinogen Ur Leukocyte Esterase Urine RBC (Auto) Urine Microscopic WBC Ur Squamous Epith Cells Urine Bacteria Influenza Typ A,B (EIA) Grp A Beta Strep Ag 06/03/23/18 03/23/18 20:49 20:49 21:05 WBC RBC Hgb Hct MCV MCH MCHC RDW Plt Count MPV Neut % (Auto) Lymph % (Auto) [place] % (Auto) Eos % (Auto) Baso % (Auto) Neut # (Auto) Lymph # (Auto) [place] # (Auto) Eos # (Auto) Baso # (Auto) PT INR APTT D-Dimer, Quantitative pO2 20 L VBG pH 7.40 VBG pCO2 52 VBG HCO3 27.8 VBG Total CO2 33.8 H VBG O2 Sat (Calc) 35.5 L VBG Base Excess 6.0 H VBG Potassium 4.2 Glucose 149 H Lactate 1.8 FiO2 21.0 Sodium 141.0 Potassium Chloride 103.0 Carbon Dioxide Anion Gap BUN Creatinine Est GFR ( Amer) Est GFR (Non-Af Amer) Random Glucose Calcium Total Bilirubin AST ALT Alkaline Phosphatase Troponin I NT-Pro-B Natriuret Pep Total Protein Albumin Globulin Albumin/Globulin Ratio Lipase Venous Blood Potassium 4.2 Urine Color Urine Clarity Urine pH Ur Specific [place] Urine Protein Urine Glucose (UA) Urine Ketones Urine Blood Urine Nitrate Urine Bilirubin Urine Urobilinogen Ur Leukocyte Esterase Urine RBC (Auto) Urine Microscopic WBC Ur Squamous Epith Cells Urine Bacteria Influenza Typ A,B (EIA) Negative for flu a/b Grp A Beta Strep Ag Negative 03/23/18 03/24/18 03/24/18 22:00 04:25 04:25 WBC 12.1 H RBC 3.98 Hgb 11.4 L Hct 34.6 MCV 86.9 MCH 28.5 MCHC 32.9 L RDW 15.6 H Plt Count 246 MPV 8.0 Neut % (Auto) 67.0 Lymph % (Auto) 22.1 [place] % (Auto) 8.8 Eos % (Auto) 1.0 Baso % (Auto) 1.1 Neut # (Auto) 8.1 H Lymph # (Auto) 2.7 [place] # (Auto) 1.1 H Eos # (Auto) 0.1 Baso # (Auto) 0.1 PT INR APTT D-Dimer, Quantitative pO2 VBG pH VBG pCO2 VBG HCO3 VBG Total CO2 VBG O2 Sat (Calc) VBG Base Excess VBG Potassium Glucose Lactate FiO2 Sodium 144 Potassium 4.3 Chloride 104 Carbon Dioxide 27 Anion Gap 17 BUN 20 H Creatinine 1.2 Est GFR ( Amer) 55 Est GFR (Non-Af Amer) 45 Random Glucose 98 Calcium 9.2 Total Bilirubin 1.7 H AST 25 ALT 38 Alkaline Phosphatase 94 Troponin I 0.2360 H* NT-Pro-B Natriuret Pep Total Protein 7.7 Albumin 4.0 Globulin 3.7 Albumin/Globulin Ratio 1.1 Lipase Venous Blood Potassium Urine Color Yellow Urine Clarity Slighty-cloudy Urine pH 7.0 Ur Specific [place] 1.005 Urine Protein 100 Urine Glucose (UA) Neg Urine Ketones Negative Urine Blood Small Urine Nitrate Negative Urine Bilirubin Negative Urine Urobilinogen 0.2-1.0 Ur Leukocyte Esterase Large Urine RBC (Auto) 4 H Urine Microscopic WBC 23 H Ur Squamous Epith Cells 1 Urine Bacteria Rare Influenza Typ A,B (EIA) Grp A Beta Strep Ag Assessment & Plan (1) Non-ST elevation [place] (NSTEMI) Assessment and Plan: trop asa cardio echo Status: Acute (2) Pneumonia Assessment and Plan: levaquin o2 prn phenergen/duoneb Status: Acute (3) CKD (chronic kidney disease) Assessment and Plan: monitor bw ivf Status: Acute (4) DVT prophylaxis Status: Acute (5) HTN (hypertension) Assessment and Plan: cont home meds Status: Acute Decision To Admit - Pt Status Changed To: Hospital Disposition Of: Inpatient - Admit Certification Admit to Inpatient:: After my assessment, the patient will require hospitalization for at least two midnights. This is because of the severity of symptoms shown, intensity of services needed, and/or the medical risk in this patient being treated as an outpatient. - . Bed Request Type: Telemetry Admitting Physician: Jerome Arnold
[2018-03-24] MEDS: levoFLOXacin 500 mg in D5W 500 MG/100 ML BAG IVPB SCH (09:30)
--- NOTE | 2018-03-24 10:04 | RAD ---
HISTORY: chest pain, sob COMPARISON: 08/30/2017 TECHNIQUE: Chest PA and lateral FINDINGS: LUNGS: No active pulmonary disease. PLEURA: Minimal blunting of right costophrenic angle may reflect small pleural effusion. No left pleural effusion. No pneumothorax. CARDIOVASCULAR: Normal. OSSEOUS STRUCTURES: No significant abnormalities. VISUALIZED UPPER ABDOMEN: Normal. OTHER FINDINGS: None. IMPRESSION: Possible small left pleural effusion. No acute infiltrate.
--- NOTE | 2018-03-24 12:23 | CT ---
PROCEDURE: CT Chest with contrast (Pulmonary Angiogram) HISTORY: chest pain, SOB COMPARISON: None available. TECHNIQUE: Axial computed tomography images were obtained of the chest in the pulmonary arterial phase of enhancement. Coronal and sagittal reformatted images were created and reviewed. Intravenous contrast dose: 70 milliliters Visipaque 320 Radiation dose: Total exam DLP = 366.97 MGy-cm. This CT exam was performed using one or more of the following dose reduction techniques: Automated exposure control, adjustment of the mA and/or kV according to patient size, and/or use of iterative reconstruction technique. FINDINGS: PULMONARY ARTERIES: Unremarkable. No pulmonary embolism. AORTA: No acute findings. No thoracic aortic aneurysm. LUNGS: Dependent atelectasis left lower lobe. Lungs otherwise clear per PLEURAL SPACES: Unremarkable. No effusion or pneuomothorax. HEART: Unremarkable. No cardiomegaly. No significant pericardial effusion. LYMPH NODES: No lymphadenopathy. BONES, CHEST WALL: Unremarkable. No fracture or destructive lesion OTHER FINDINGS: Unremarkable. IMPRESSION: Unremarkable CT pulmonary angiogram. No pulmonary embolus.
[2018-03-24] MEDS ORDERED: Pneumococcal 23-Valent Vaccine IM ONE (12:54)
--- NOTE | 2018-03-24 19:46 | CP.PCM.CON ---
History of Present Illness - History of Present Illness History of Present Illness: I was asked to evaluate patient by Dr Arnold and Dr Lau. Patient is a 62 year old female with PMH HTN, DM who presents with chest pain. She reports substernal chest pressure which was nonradiating. There was associated dyspnea. The patient;s symptoms occurred intermittently. She was referred to the ER by her primary doctor. She had elevated troponin. She has elevated WBC and is on Levaquin. Review of Systems - Constitutional Constitutional: absent: As Per HPI, Anorexia, Chills, Daytime Sleepiness, Excessive Sweating, Fatigue, Fever, Frequent Falls, Headache, Increased Appetite , Lethargy, Malaise, Night Sweats, Snoring, Sleep Apnea, Weight Gain, Weight Loss, Weakness, Other - EENT Eyes: absent: As Per HPI, Blind Spots, Blurred Vision, Change in Vision, Decreased Night Vision, Diplopia, Discharge, Dry Eye, Exophthalmos, Floaters, Irritation, Itchy Eyes, Loss of Peripheral Vision, Pain, Photophobia, Requires Corrective Lenses, Sees Flashes, Spots in Vision, Tunnel Vision, Other Visual Disturbances, Loss of Vision, Other Ears: absent: As Per HPI, Decreased Hearing, Ear Discharge, Ear Pain, Tinnitus, Abnormal Hearing, Disequilibrium, Dizziness, Other Nose/Mouth/Throat: absent: As Per HPI, Epistaxis, Nasal Congestion, Nasal Discharge, Nasal Obstruction, Nasal Trauma, Nose Pain, Post Nasal Drip, Sinus Pain, Sinus Pressure, Bleeding Gums, Change in Voice, Dental Pain, Dry Mouth, Dysphagia, Halitosis, Hoarsness, Lip Swelling, Mouth Lesions, Mouth Pain, Odynophagia, Sore Throat, Throat Swelling, Tongue Swelling, Facial Pain, Neck Pain, Neck Mass, Other - Breasts Breasts: absent: As Per HPI, Change in Shape, Mass, Pain, Nipple Discharge, Nipple Inversion, Skin Changes, Swelling, Other - Cardiovascular Cardiovascular: Chest Pain - Respiratory Respiratory: absent: As Per HPI, Cough, Dyspnea, Hemoptysis, Dyspnea on Exertion , Wheezing, Snoring, Stridor, Pain on Inspiration, Chest Congestion, Excessive Mucous Production, Change in Mucous Color, Pain with Coughing, Other - Gastrointestinal Gastrointestinal: absent: As Per HPI, Abdominal Pain, Belching, Bloating, Change in Bowel Habits, Change in Stool Character, Coffee Ground Emesis, Constipation, Cramping, Diarrhea, Dyspepsia, Dysphagia, Early Satiety, Excessive Flatus, Fecal Incontinence, Heartburn, Hematemesis, Hematochezia, Loose Stools, Melena, Nausea, Odynophagia, Temesmus, Vomiting, Other - Genitourinary Genitourinary: absent: As Per HPI, Change in Urinary Stream, Difficulty Urinating, Dysuria, Flank Pain, Hematuria, Pyuria, Nocturia, Urinary Incontinence, Urinary Frequency, Urinary Hesitance, Urinary Urgency, Voiding Freq/Small Amts, Freq UTI, Hx Renal/Bladder Calculi, Hx /Renal Surgery, Bladder Distension, Other - Musculoskeletal Musculoskeletal: absent: As Per HPI, Abnormal Gait, Arthralgias, Atrophy, Back Pain, Deformity, Joint Swelling, Limited Range of Motion, Loss of Height, Muscle Cramps, Muscle Weakness, Myalgias, Neck Pain, Numbness, Radiating Pain into Limb, Stiffness, Tingling, Other - Integumentary Integumentary: absent: As Per HPI, Acne, Alopecia, Bleeding Lesions, Change in Hair, Change in Nails, Change in Pigmentation, Changing Lesions, Dry Skin, Erythema, Furuncle, Hirsutism, Lesions, New Lesions, Non-Healing Lesions, Photosensitivity, Pruritus, Rash, Skin Pain, Skin Ulcer, Sores, Striae, Swelling , Unusual Bruising, Wounds, Jaundice, Other - Neurological Neurological: absent: As Per HPI, Abnormal Gait, Abnormal Hearing, Abnormal Movements, Abnormal Speech, Behavioral Changes, Burning Sensations, Confusion, Convulsions, Disequilibrium, Dizziness, Numbness, Focal Weakness, Frequent Falls , Headaches, Lack of Coordination, Loss of Vision, Memory Loss, Paresthesias, Radicular Pain, Restless Legs, Sensory Deficit, Syncope, Tingling, Tremor, Vertigo, Weakness, Other Visual Disturbances, Other - Psychiatric Psychiatric: absent: As Per HPI, Abnormal Sleep Pattern, Anhedonia, Anxiety, Auditory Hallucinations, Behavioral Changes, Change in Appetite, Change in Libido, Confusion, Depression, Difficulty Concentrating, Hallucinations, Homicidal Ideation, Hopelessness, Irritability, Memory Loss, Mood Swings, Panic Attacks, Paranoia, Suicidal Ideation, Visual Hallucinations, Tactile Hallucinations, Other - Endocrine Endocrine: absent: As Per HPI, Change in Body Appearance, Change in Libido, Cold Intolorance, Deepening of Voice, Excessive Sweating, Fatigue, Flushing, Heat Intolorance, Increase in Ring/Shoe/Hat Size, Palpitations, Polydipsia, Polyphagia, Polyuria, Other - Hematologic/Lymphatic Hematologic: absent: As Per HPI, Easy Bleeding, Easy Bruising, Lymphadenopathy, Other Past Patient History - Past Medical History & Family History Past Medical History?: Yes - Past Social History Smoking Status: Former Smoker - CARDIAC Hx Cardiac Disorders: Yes - PULMONARY Hx Asthma: Yes - NEUROLOGICAL Hx Neurological Disorder: No - HEENT Hx HEENT Problems: No - RENAL Hx Chronic Kidney Disease: No - ENDOCRINE/METABOLIC Hx Endocrine Disorders: Yes (DM, Diverticulosis) - HEMATOLOGICAL/ONCOLOGICAL Hx Human Immunodeficiency Virus (HIV): No - INTEGUMENTARY Hx Dermatological Problems: No - MUSCULOSKELETAL/RHEUMATOLOGICAL Hx Falls: No - GASTROINTESTINAL Hx Diverticulitis: Yes - GENITOURINARY/GYNECOLOGICAL Hx Genitourinary Disorders: No - PSYCHIATRIC Hx Substance Use: No - SURGICAL HISTORY Hx Cholecystectomy: Yes - ANESTHESIA Hx Anesthesia: Yes Hx Anesthesia Reactions: No Meds Allergies/Adverse Reactions: Allergies Allergy/AdvReac Type Severity Reaction Status Date / Time Penicillins Allergy Intermediate ITCHING Verified 08/30/17 10:18 tramadol AdvReac ITCHING Verified 08/30/17 10:18 - Medications Medications: Current Medications Albuterol/Ipratropium (Duoneb 3 Mg/0.5 Mg (3 Ml) Ud) 3 ml INH RQ4 PRN PRN Reason: Shortness of Breath Allopurinol (Zyloprim) 100 mg PO DAILY [facility] Last Admin: 03/24/18 09:22 Dose: 100 mg Amlodipine Besylate (Norvasc) 2.5 mg PO DAILY [facility] Last Admin: 03/24/18 09:24 Dose: 2.5 mg Aspirin (Aspirin Chewable) 81 mg PO DAILY [facility] Last Admin: 03/24/18 09:22 Dose: 81 mg Atorvastatin Calcium (Lipitor) 20 mg PO [facility] Famotidine (Pepcid) 20 mg PO DAILY [facility] Last Admin: 03/24/18 09:24 Dose: 20 mg Fludrocortisone Acetate (Florinef) 0.1 mg PO DAILY [facility] Last Admin: 03/24/18 09:23 Dose: 0.1 mg Glipizide (Glucotrol) 10 mg PO DAILY [facility] Last Admin: 03/24/18 09:23 Dose: 10 mg Hydrochlorothiazide (Microzide) 12.5 mg PO DAILY [facility] Last Admin: 03/24/18 09:24 Dose: 12.5 mg Levofloxacin/Dextrose (Levaquin 500mg) 500 mg in 100 mls @ 100 mls/hr IVPB DAILY [facility] PRN Reason: Protocol Last Admin: 03/24/18 09:30 Dose: 100 mls/hr Sodium Chloride (Sodium Chloride 0.9%) 1,000 mls @ 100 mls/hr IV .Q10H [facility] Stop: 03/24/18 23:09 Last Admin: 03/24/18 09:25 Dose: Not Given Promethazine HCl/Dextromethorphan (Phenergan Dm Syrup) 5 ml PO Q6 PRN PRN Reason: Cough Physical Exam - Constitutional Appears: Non-toxic - Head Exam Head Exam: NORMAL INSPECTION - Eye Exam Eye Exam: Normal appearance - ENT Exam ENT Exam: Mucous Membranes Moist - Neck Exam Neck exam: Positive for: Full Rom - Respiratory Exam Respiratory Exam: NORMAL BREATHING PATTERN - Cardiovascular Exam Cardiovascular Exam: REGULAR RHYTHM - GI/Abdominal Exam GI & Abdominal Exam: Normal Bowel Sounds - Rectal Exam Rectal Exam: Deferred - Extremities Exam Extremities exam: Negative for: pedal edema - Back Exam Back exam: NORMAL INSPECTION - Neurological Exam Neurological exam: Alert, Oriented x3 - Psychiatric Exam Psychiatric exam: Normal Affect - Skin Skin Exam: Normal Color Results - Vital Signs Recent Vital Signs: Last Vital Signs Temp 98.8 F 03/24/18 16:19 Pulse 101 H 03/24/18 16:19 Resp 18 03/24/18 16:19 BP 131/84 03/24/18 16:19 Pulse Ox 98 03/24/18 16:19 - Labs Result Diagrams: 03/24/18 04:25 03/24/18 04:25 Labs: Laboratory Results - last 24 hr 03/23/18 03/23/18 03/23/18 20:49 20:49 20:49 WBC 13.0 H RBC 3.92 Hgb 11.1 L Hct 34.1 MCV 87.2 MCH 28.3 MCHC 32.4 L RDW 16.1 H Plt Count 246 MPV 8.0 Neut % (Auto) 76.5 H Lymph % (Auto) 15.4 L Warren % (Auto) 7.1 Eos % (Auto) 0.3 Baso % (Auto) 0.7 Neut # (Auto) 9.9 H Lymph # (Auto) 2.0 Warren # (Auto) 0.9 H Eos # (Auto) 0.0 Baso # (Auto) 0.1 PT 13.4 H INR 1.2 APTT 35.6 D-Dimer, Quantitative 726 H pO2 VBG pH VBG pCO2 VBG HCO3 VBG Total CO2 VBG O2 Sat (Calc) VBG Base Excess VBG Potassium Glucose Lactate FiO2 Sodium 143 Potassium 4.3 Chloride 101 Carbon Dioxide 29 Anion Gap 17 BUN 21 H Creatinine 1.3 H Est GFR ( Amer) 50 Est GFR (Non-Af Amer) 41 POC Glucose (mg/dL) Random Glucose 141 H Calcium 9.2 Total Bilirubin 1.7 H AST 29 ALT 41 Alkaline Phosphatase 97 Troponin I 0.3970 H* NT-Pro-B Natriuret Pep 561 Total Protein 7.7 Albumin 4.1 Globulin 3.7 Albumin/Globulin Ratio 1.1 Lipase 52 Venous Blood Potassium Urine Color Urine Clarity Urine pH Ur Specific [place] Urine Protein Urine Glucose (UA) Urine Ketones Urine Blood Urine Nitrate Urine Bilirubin Urine Urobilinogen Ur Leukocyte Esterase Urine RBC (Auto) Urine Microscopic WBC Ur Squamous Epith Cells Urine Bacteria Influenza Typ A,B (EIA) Grp A Beta Strep Ag 03/23/18 03/23/18 03/23/18 20:49 20:49 21:05 WBC RBC Hgb Hct MCV MCH MCHC RDW Plt Count MPV Neut % (Auto) Lymph % (Auto) [place] % (Auto) Eos % (Auto) Baso % (Auto) Neut # (Auto) Lymph # (Auto) Warren # (Auto) Eos # (Auto) Baso # (Auto) PT INR APTT D-Dimer, Quantitative pO2 20 L VBG pH 7.40 VBG pCO2 52 VBG HCO3 27.8 VBG Total CO2 33.8 H VBG O2 Sat (Calc) 35.5 L VBG Base Excess 6.0 H VBG Potassium 4.2 Glucose 149 H Lactate 1.8 FiO2 21.0 Sodium 141.0 Potassium Chloride 103.0 Carbon Dioxide Anion Gap BUN Creatinine Est GFR ( Amer) Est GFR (Non-Af Amer) POC Glucose (mg/dL) Random Glucose Calcium Total Bilirubin AST ALT Alkaline Phosphatase Troponin I NT-Pro-B Natriuret Pep Total Protein Albumin Globulin Albumin/Globulin Ratio Lipase Venous Blood Potassium 4.2 Urine Color Urine Clarity Urine pH Ur Specific [place] Urine Protein Urine Glucose (UA) Urine Ketones Urine Blood Urine Nitrate Urine Bilirubin Urine Urobilinogen Ur Leukocyte Esterase Urine RBC (Auto) Urine Microscopic WBC Ur Squamous Epith Cells Urine Bacteria Influenza Typ A,B (EIA) Negative for flu a/b Grp A Beta Strep Ag Negative 03/23/18 03/24/18 03/24/18 22:00 04:25 04:25 WBC 12.1 H RBC 3.98 Hgb 11.4 L Hct 34.6 MCV 86.9 MCH 28.5 MCHC 32.9 L RDW 15.6 H Plt Count 246 MPV 8.0 Neut % (Auto) 67.0 Lymph % (Auto) 22.1 Warren % (Auto) 8.8 Eos % (Auto) 1.0 Baso % (Auto) 1.1 Neut # (Auto) 8.1 H Lymph # (Auto) 2.7 Warren # (Auto) 1.1 H Eos # (Auto) 0.1 Baso # (Auto) 0.1 PT INR APTT D-Dimer, Quantitative pO2 VBG pH VBG pCO2 VBG HCO3 VBG Total CO2 VBG O2 Sat (Calc) VBG Base Excess VBG Potassium Glucose Lactate FiO2 Sodium 144 Potassium 4.3 Chloride 104 Carbon Dioxide 27 Anion Gap 17 BUN 20 H Creatinine 1.2 Est GFR ( Amer) 55 Est GFR (Non-Af Amer) 45 POC Glucose (mg/dL) Random Glucose 98 Calcium 9.2 Total Bilirubin 1.7 H AST 25 ALT 38 Alkaline Phosphatase 94 Troponin I 0.2360 H* NT-Pro-B Natriuret Pep Total Protein 7.7 Albumin 4.0 Globulin 3.7 Albumin/Globulin Ratio 1.1 Lipase Venous Blood Potassium Urine Color Yellow Urine Clarity Slighty-cloudy Urine pH 7.0 Ur Specific [place] 1.005 Urine Protein 100 Urine Glucose (UA) Neg Urine Ketones Negative Urine Blood Small Urine Nitrate Negative Urine Bilirubin Negative Urine Urobilinogen 0.2-1.0 Ur Leukocyte Esterase Large Urine RBC (Auto) 4 H Urine Microscopic WBC 23 H Ur Squamous Epith Cells 1 Urine Bacteria Rare Influenza Typ A,B (EIA) Grp A Beta Strep Ag 03/24/18 03/24/18 03/24/18 12:09 12:43 16:09 WBC RBC Hgb Hct MCV MCH MCHC RDW Plt Count MPV Neut % (Auto) Lymph % (Auto) [place] % (Auto) Eos % (Auto) Baso % (Auto) Neut # (Auto) Lymph # (Auto) [place] # (Auto) Eos # (Auto) Baso # (Auto) PT INR APTT D-Dimer, Quantitative pO2 VBG pH VBG pCO2 VBG HCO3 VBG Total CO2 VBG O2 Sat (Calc) VBG Base Excess VBG Potassium Glucose Lactate FiO2 Sodium Potassium Chloride Carbon Dioxide Anion Gap BUN Creatinine Est GFR ( Amer) Est GFR (Non-Af Amer) POC Glucose (mg/dL) 68 100 Random Glucose Calcium Total Bilirubin AST ALT Alkaline Phosphatase Troponin I 0.1310 H* NT-Pro-B Natriuret Pep Total Protein Albumin Globulin Albumin/Globulin Ratio Lipase Venous Blood Potassium Urine Color Urine Clarity Urine pH Ur Specific [place] Urine Protein Urine Glucose (UA) Urine Ketones Urine Blood Urine Nitrate Urine Bilirubin Urine Urobilinogen Ur Leukocyte Esterase Urine RBC (Auto) Urine Microscopic WBC Ur Squamous Epith Cells Urine Bacteria Influenza Typ A,B (EIA) Grp A Beta Strep Ag - EKG Data EKG Interpreted by: Myself EKG shows normal: Sinus rhythm Assessment & Plan (1) Non-ST elevation NM (NSTEMI) Assessment and Plan: chest pain wioth assocaited elevation in troponin. recommend cardiac cath. given elevated WBC recommend continued antibiotic therapy, plan for cath after normalization ow WBC, Status: Acute (2) Pneumonia Assessment and Plan: continue antibiotics Status: Acute (3) HTN (hypertension) Assessment and Plan: blood pressure control Status: Acute
[2018-03-25 05:28] LABS: INR 1.1 (0.9-1.2); PARTIAL THROMBOPLASTIN TIME 38.1 Seconds (25.6-37.1); PROTHROMBIN TIME 12.5 Seconds (9.8-13.1)
[2018-03-25 05:29] LABS: BASO # 0.1 K/uL (0.0-0.2); BASO % 0.7 % (0.0-2.0); EOS # 0.2 K/uL (0.0-0.7); EOS % 1.8 % (0.0-4.0); HEMOGLOBIN 11.3 g/dL (12.0-16.0); LYMPH # 2.7 K/uL (1.0-4.3); LYMPH % 27.9 % (20.0-40.0); MEAN CELL VOLUME 87.4 fl (81.0-99.0); MEAN CORPUSCULAR HEMOGLOBIN 28.9 pg (27.0-31.0); MEAN PLATELET VOLUME 7.9 fl (7.2-11.7); MONO # 0.6 K/uL (0.0-0.8); MONO % 6.7 % (0.0-10.0); NEUT % 62.9 % (50.0-75.0); RBC 3.91 Mil/uL (3.80-5.20); RED CELL DISTRIBUTION WIDTH 15.5 % (11.5-14.5); WHITE BLOOD COUNT 9.5 K/uL (4.8-10.8)
[2018-03-25 05:34] LABS: ALBUMIN 3.8 g/dL (3.5-5.0); CALCIUM 9.4 mg/dL (8.4-10.2)
--- NOTE | 2018-03-25 06:33 | PQF ---
CDI RESPONSE TEXT: Pt w/ ckd stage 3 CDI QUERY TEXT: Kidney Disease, Chronic CKD Stage Chronic Kidney Disease (CKD) is documented in the Medical Record. Please specify the disease stage ( includes probable or suspected) Such as: -- Chronic kidney disease Stage 1 -- Chronic kidney disease Stage 2 -- Chronic kidney disease Stage 3 -- Chronic kidney disease Stage 4 -- Chronic kidney disease Stage 5 -- Chronic kidney disease Stage 5, requiring dialysis -- End Stage Renal Disease -- Other, please specify Stages are defined by the [employer] as follows: CKD Stage I GFR >= 90 ml / min per 1.73 m2 and persistent albuminuria CKD Stage 2 GFR between 60 and 89 with persistent albuminuria CKD Stage 3 GFR between 30 and 59 CKD Stage 4 GFR between 15 and 29 CKD Stage 5 GFR between <15 or End Stage Renal Disease The patient's Clinical Indicators include: Documentation of CKD. BUN 21, 20, Creatinine 1.3, 1.2, GFR 50, 55 or Non 41, 45 Query created by: Raeann Murrell on 03/24/2018 10:18 AM Electronically signed by: Dilan Lau APN 03/25/2018 6:31 AM
--- NOTE | 2018-03-25 06:33 | PQF ---
CDI RESPONSE TEXT: Pts pna is bacterial in origin on levaquin. CDI QUERY TEXT: Pneumonia Specificity NOTE CAP is where the pneumonia occurred and Not the TYPE Pneumonia is documented in the Medical Record. Please specify the type of pneumonia and the causative organism (includes probable or suspected) Such as: Type: -- Aspiration pneumonia (please also specify the aspirate) -- Bacterial (please document suspected or probable organism) -- Bronchopneumonia (please document suspected or probable organism) -- Interstitial pneumonia -- Organizing pneumonia / BOOP -- Viral -- Other, please specify The patient's Clinical Indicators include: Admitted with midsternal chest pain and associated SOB. Temp 100 prior to admission. WBC 13 with a L shift. CXR not in the EMR at this time. Treated with Levaquin. Documentation of Pneumonia. Query created by: Raeann Murrell on 03/24/2018 10:16 AM Electronically signed by: Dilan Lau APN 03/25/2018 6:31 AM
--- NOTE | 2018-03-25 08:06 | CP.PCM.PN ---
Subjective - Date & Time of Evaluation Date of Evaluation: 03/25/18 Time of Evaluation: 08:05 - Subjective Subjective: pt doing well. no f/c, n/v/d. no cp, dyspnea. no cough/congestion bw noted. pt for cardiac cath tomorrow. case d/c w/ dr montanez Objective - Vital Signs/Intake and Output Vital Signs (last 24 hours): Temp Pulse Resp BP Pulse Ox 98.4 F 95 H 18 145/89 97 03/25/18 05:14 03/25/18 05:14 03/25/18 05:14 03/25/18 05:14 03/25/18 05:14 - Medications Medications: Current Medications Albuterol/Ipratropium (Duoneb 3 Mg/0.5 Mg (3 Ml) Ud) 3 ml INH RQ4 PRN PRN Reason: Shortness of Breath Allopurinol (Zyloprim) 100 mg PO DAILY [facility] Last Admin: 03/24/18 09:22 Dose: 100 mg Amlodipine Besylate (Norvasc) 2.5 mg PO DAILY [facility] Last Admin: 03/24/18 09:24 Dose: 2.5 mg Aspirin (Aspirin Chewable) 81 mg PO DAILY [facility] Last Admin: 03/24/18 09:22 Dose: 81 mg Atorvastatin Calcium (Lipitor) 20 mg PO HS [facility] Last Admin: 03/24/18 22:29 Dose: 20 mg Famotidine (Pepcid) 20 mg PO DAILY [facility] Last Admin: 03/24/18 09:24 Dose: 20 mg Fludrocortisone Acetate (Florinef) 0.1 mg PO DAILY [facility] Last Admin: 03/24/18 09:23 Dose: 0.1 mg Glipizide (Glucotrol) 10 mg PO DAILY [facility] Last Admin: 03/24/18 09:23 Dose: 10 mg Hydrochlorothiazide (Microzide) 12.5 mg PO DAILY [facility] Last Admin: 03/24/18 09:24 Dose: 12.5 mg Levofloxacin/Dextrose (Levaquin 500mg) 500 mg in 100 mls @ 100 mls/hr IVPB DAILY [facility] PRN Reason: Protocol Last Admin: 03/24/18 09:30 Dose: 100 mls/hr Promethazine HCl/Dextromethorphan (Phenergan Dm Syrup) 5 ml PO Q6 PRN PRN Reason: Cough - Labs Labs: 03/25/18 04:20 03/25/18 04:20 PT 12.5 Seconds (9.8-13.1) 03/25/18 04:20 INR 1.1 (0.9-1.2) 03/25/18 04:20 APTT 38.1 Seconds (25.6-37.1) H 03/25/18 04:20 - Constitutional Appears: Well, Non-toxic, No Acute Distress - Head Exam Head Exam: ATRAUMATIC, NORMAL INSPECTION, NORMOCEPHALIC - Eye Exam Eye Exam: EOMI, Normal appearance, PERRL Pupil Exam: NORMAL ACCOMODATION, PERRL - ENT Exam ENT Exam: Mucous Membranes Moist, Normal Exam - Neck Exam Neck Exam: Full ROM, Normal Inspection. absent: Lymphadenopathy - Respiratory Exam Respiratory Exam: Clear to Ausculation Bilateral, NORMAL BREATHING PATTERN - Cardiovascular Exam Cardiovascular Exam: REGULAR RHYTHM, RRR, +S1, +S2. absent: Murmur - GI/Abdominal Exam GI & Abdominal Exam: Soft, Normal Bowel Sounds. absent: Tenderness Additional comments: colostomy r abd - Extremities Exam Extremities Exam: Full ROM, Normal Capillary Refill, Normal Inspection. absent : Joint Swelling, Pedal Edema - Back Exam Back Exam: NORMAL INSPECTION - Neurological Exam Neurological Exam: Alert, Awake, CN II-XII Intact, Normal Gait, Oriented x3 - Psychiatric Exam Psychiatric exam: Normal Affect, Normal Mood - Skin Skin Exam: Dry, Intact, Normal Color, Warm Assessment and Plan (1) Non-ST elevation [place] (NSTEMI) Status: Acute (2) Pneumonia Status: Acute (3) CKD (chronic kidney disease) Status: Acute (4) DVT prophylaxis Status: Acute (5) HTN (hypertension) Status: Acute - Assessment and Plan (Free Text) Assessment: (1) Non-ST elevation [place] (NSTEMI) Assessment and Plan: trop- + x 3 cath tomorrow asa cardio echo Status: Acute (2) Pneumonia Assessment and Plan: levaquin o2 prn phenergen/duoneb Status: Acute (3) CKD (chronic kidney disease) Assessment and Plan: monitor bw ivf Status: Acute (4) DVT prophylaxis scd ae hose hold lovenox for cath amulation Status: Acute (5) HTN (hypertension) Assessment and Plan: cont home meds Status: Acute
[2018-03-25] MEDS: levoFLOXacin 500 mg in D5W 500 MG/100 ML BAG IVPB SCH (08:31)
--- NOTE | 2018-03-25 09:15 | CARD ---
APPROVED REPORT EXAM: Two-dimensional and M-mode echocardiogram with Doppler and color Doppler. Other Information Quality : GoodRhythm : NSR INDICATION Chest Pain Elevated Troponin 2D DIMENSIONS IVSd1.17 (0.7-1.1cm)LVDd4.49 (3.9-5.9cm) LVOT Diameter2.26 (1.8-2.4cm)PWd0.81 (0.7-1.1cm) IVSs1.14 (0.8-1.2cm)LVDs3.18 (2.5-4.0cm) FS (%) 29.2 %PWs1.04 (0.8-1.2cm) M-Mode DIMENSIONS Left Atrium (MM)3.94 (2.5-4.0cm)IVSd0.91 (0.7-1.1cm) Aortic Root3.31 (2.2-3.7cm)LVDd5.41 (4.0-5.6cm) Aortic Cusp Exc.2.00 (1.5-2.0cm)PWd0.94 (0.7-1.1cm) IVSs1.31 cmFS (%) 32 % LVDs3.69 (2.0-3.8cm)PWs1.25 cm Mitral Valve MV E Sqkhokga19.1cm/sMV DECEL [id number] A Brjrwjtv31.5cm/s MV [id number]/A ratio0.7MVA (PHT)5.16cm2 TDI Lateral E' Peak V7.33cm/sMedial E' Peak V6.93cm/sE/Lateral E'5.6 E/Medial E'5.9 Pulmonary Valve PV Peak Mkkuazyz65.5cm/s LEFT VENTRICLE The left ventricle is normal size. There is normal left ventricular wall thickness. Left ventricle systolic function is normal. The Ejection Fraction is 65-70%. There is normal LV segmental wall motion. Transmitral Doppler flow pattern is Grade I-abnormal relaxation pattern. RIGHT VENTRICLE The right ventricle is normal size. There is normal right ventricular wall thickness. The right ventricular systolic function is normal. ATRIA The left atrium size is normal. The right atrium size is normal. AORTIC VALVE The aortic valve is normal in structure. No aortic regurgitation is present. There is no aortic valvular stenosis. MITRAL VALVE The mitral valve is normal in structure. There is no evidence of mitral valve prolapse. There is no mitral valve stenosis. There is no mitral valve regurgitation noted. TRICUSPID VALVE The tricuspid valve is normal in structure. There is no tricuspid valve regurgitation noted. PULMONIC VALVE The pulmonary valve is normal in structure. There is no pulmonic valvular regurgitation. GREAT VESSELS The aortic root is normal in size. The IVC is normal in size and collapses >50% with inspiration. PERICARDIAL EFFUSION The pericardium appears normal. <Conclusion> The left ventricle is normal size. There is normal left ventricular wall thickness. There is normal LV segmental wall motion. Left ventricle systolic function is normal. The Ejection Fraction is 65-70%. Transmitral Doppler flow pattern is Grade I-abnormal relaxation pattern.
--- NOTE | 2018-03-25 18:41 | CP.PCM.PN ---
Subjective - Date & Time of Evaluation Date of Evaluation: 03/25/18 Time of Evaluation: 18:20 - Subjective Subjective: patient has no current chest pain. Objective - Vital Signs/Intake and Output Vital Signs (last 24 hours): Temp Pulse Resp BP Pulse Ox 98.9 F 90 20 148/81 99 03/25/18 16:23 03/25/18 16:23 03/25/18 16:23 03/25/18 16:23 03/25/18 16:23 - Medications Medications: Current Medications Albuterol/Ipratropium (Duoneb 3 Mg/0.5 Mg (3 Ml) Ud) 3 ml INH RQ4 PRN PRN Reason: Shortness of Breath Allopurinol (Zyloprim) 100 mg PO DAILY [facility] Last Admin: 03/25/18 08:34 Dose: 100 mg Amlodipine Besylate (Norvasc) 2.5 mg PO DAILY [facility] Last Admin: 03/25/18 08:34 Dose: 2.5 mg Aspirin (Aspirin Chewable) 81 mg PO DAILY [facility] Last Admin: 03/25/18 08:34 Dose: 81 mg Atorvastatin Calcium (Lipitor) 20 mg PO HS [facility] Last Admin: 03/24/18 22:29 Dose: 20 mg Famotidine (Pepcid) 20 mg PO DAILY [facility] Last Admin: 03/25/18 08:34 Dose: 20 mg Fludrocortisone Acetate (Florinef) 0.1 mg PO DAILY [facility] Last Admin: 03/25/18 08:34 Dose: 0.1 mg Glipizide (Glucotrol) 10 mg PO DAILY [facility] Last Admin: 03/25/18 08:34 Dose: 10 mg Hydrochlorothiazide (Microzide) 12.5 mg PO DAILY [facility] Last Admin: 03/25/18 08:34 Dose: 12.5 mg Levofloxacin/Dextrose (Levaquin 500mg) 500 mg in 100 mls @ 100 mls/hr IVPB DAILY [facility] PRN Reason: Protocol Last Admin: 03/25/18 08:31 Dose: 100 mls/hr Promethazine HCl/Dextromethorphan (Phenergan Dm Syrup) 5 ml PO Q6 PRN PRN Reason: Cough - Labs Labs: 03/25/18 04:20 03/25/18 04:20 PT 12.5 Seconds (9.8-13.1) 03/25/18 04:20 INR 1.1 (0.9-1.2) 03/25/18 04:20 APTT 38.1 Seconds (25.6-37.1) H 03/25/18 04:20 - Constitutional Appears: Non-toxic - Head Exam Head Exam: NORMAL INSPECTION - Eye Exam Eye Exam: Normal appearance - ENT Exam ENT Exam: Mucous Membranes Moist - Neck Exam Neck Exam: Full ROM - Respiratory Exam Respiratory Exam: NORMAL BREATHING PATTERN - Cardiovascular Exam Cardiovascular Exam: REGULAR RHYTHM - GI/Abdominal Exam GI & Abdominal Exam: Normal Bowel Sounds - Rectal Exam Rectal Exam: Deferred - Extremities Exam Extremities Exam: absent: Pedal Edema - Back Exam Back Exam: NORMAL INSPECTION - Neurological Exam Neurological Exam: Alert - Psychiatric Exam Psychiatric exam: Normal Affect - Skin Skin Exam: Normal Color Assessment and Plan (1) Non-ST elevation [place] (NSTEMI) Assessment & Plan: currently stable. will transfer for cath tomorrow. NPO after midnight. Status: Acute (2) Pneumonia Status: Acute (3) HTN (hypertension) Status: Acute
[2018-03-26 04:57] VITALS: TEMP 98.1
[2018-03-26 05:52] LABS: BASO # 0.1 K/uL (0.0-0.2); BASO % 0.6 % (0.0-2.0); EOS # 0.2 K/uL (0.0-0.7); EOS % 2.6 % (0.0-4.0); HEMOGLOBIN 11.3 g/dL (12.0-16.0); LYMPH # 2.4 K/uL (1.0-4.3); LYMPH % 26.7 % (20.0-40.0); MEAN CELL VOLUME 87.2 fl (81.0-99.0); MEAN CORPUSCULAR HEMOGLOBIN 28.3 pg (27.0-31.0); MEAN CORPUSCULAR HGB CONC 32.4 g/dL (33.0-37.0); MEAN PLATELET VOLUME 7.8 fl (7.2-11.7); MONO # 0.6 K/uL (0.0-0.8); NEUT # 5.7 K/uL (1.8-7.0); NEUT % 63.1 % (50.0-75.0); RBC 3.99 Mil/uL (3.80-5.20); RED CELL DISTRIBUTION WIDTH 15.4 % (11.5-14.5); WHITE BLOOD COUNT 9.1 K/uL (4.8-10.8)
[2018-03-26 06:29] LABS: ALB/GLOB RATIO 1.1 (1.0-2.1); ALBUMIN 3.8 g/dL (3.5-5.0); CALCIUM 9.2 mg/dL (8.4-10.2)
--- NOTE | 2018-03-26 07:18 | CP.PCM.PN ---
Subjective - Date & Time of Evaluation Date of Evaluation: 03/26/18 Time of Evaluation: 07:18 Objective - Vital Signs/Intake and Output Vital Signs (last 24 hours): Temp Pulse Resp BP Pulse Ox 98.1 F 82 18 109/64 97 03/26/18 05:00 03/26/18 05:00 03/26/18 05:00 03/26/18 05:00 03/26/18 05:00 - Medications Medications: Current Medications Albuterol/Ipratropium (Duoneb 3 Mg/0.5 Mg (3 Ml) Ud) 3 ml INH RQ4 PRN PRN Reason: Shortness of Breath Allopurinol (Zyloprim) 100 mg PO DAILY [facility] Last Admin: 03/25/18 08:34 Dose: 100 mg Amlodipine Besylate (Norvasc) 2.5 mg PO DAILY [facility] Last Admin: 03/25/18 08:34 Dose: 2.5 mg Aspirin (Aspirin Chewable) 81 mg PO DAILY [facility] Last Admin: 03/25/18 08:34 Dose: 81 mg Atorvastatin Calcium (Lipitor) 20 mg PO HS [facility] Last Admin: 03/25/18 22:36 Dose: 20 mg Famotidine (Pepcid) 20 mg PO DAILY [facility] Last Admin: 03/25/18 08:34 Dose: 20 mg Fludrocortisone Acetate (Florinef) 0.1 mg PO DAILY [facility] Last Admin: 03/25/18 08:34 Dose: 0.1 mg Glipizide (Glucotrol) 10 mg PO DAILY [facility] Last Admin: 03/25/18 08:34 Dose: 10 mg Hydrochlorothiazide (Microzide) 12.5 mg PO DAILY [facility] Last Admin: 03/25/18 08:34 Dose: 12.5 mg Levofloxacin/Dextrose (Levaquin 500mg) 500 mg in 100 mls @ 100 mls/hr IVPB DAILY [facility] PRN Reason: Protocol Last Admin: 03/25/18 08:31 Dose: 100 mls/hr Promethazine HCl/Dextromethorphan (Phenergan Dm Syrup) 5 ml PO Q6 PRN PRN Reason: Cough - Labs Labs: 03/26/18 05:10 03/26/18 05:10 PT 12.5 Seconds (9.8-13.1) 03/25/18 04:20 INR 1.1 (0.9-1.2) 03/25/18 04:20 APTT 38.1 Seconds (25.6-37.1) H 03/25/18 04:20 Assessment and Plan (1) Non-ST elevation IN (NSTEMI) Status: Acute (2) Pneumonia Status: Acute (3) CKD (chronic kidney disease) Status: Acute (4) DVT prophylaxis Status: Acute (5) HTN (hypertension) Status: Acute
--- NOTE | 2018-03-26 07:40 | CP.PCM.PCO ---
Physician Communication Note - Physician Communication Note Physician Communication Note: pt in cath at [facility] at time of eval
--- NOTE | 2018-03-26 09:32 | CP.PCM.PN ---
Subjective - Date & Time of Evaluation Date of Evaluation: 03/26/18 Time of Evaluation: 09:00 - Subjective Subjective: cardiac cath performed. no significant CAD, normal left ventricular function. medical therapy. Objective - Vital Signs/Intake and Output Vital Signs (last 24 hours): Temp Pulse Resp BP Pulse Ox 98.1 F 82 18 109/64 97 03/26/18 05:00 03/26/18 05:00 03/26/18 05:00 03/26/18 05:00 03/26/18 05:00 - Medications Medications: Current Medications Albuterol/Ipratropium (Duoneb 3 Mg/0.5 Mg (3 Ml) Ud) 3 ml INH RQ4 PRN PRN Reason: Shortness of Breath Allopurinol (Zyloprim) 100 mg PO DAILY [facility] Last Admin: 03/25/18 08:34 Dose: 100 mg Amlodipine Besylate (Norvasc) 2.5 mg PO DAILY [facility] Last Admin: 03/25/18 08:34 Dose: 2.5 mg Aspirin (Aspirin Chewable) 81 mg PO DAILY [facility] Last Admin: 03/25/18 08:34 Dose: 81 mg Atorvastatin Calcium (Lipitor) 20 mg PO HS [facility] Last Admin: 03/25/18 22:36 Dose: 20 mg Famotidine (Pepcid) 20 mg PO DAILY [facility] Last Admin: 03/25/18 08:34 Dose: 20 mg Fludrocortisone Acetate (Florinef) 0.1 mg PO DAILY [facility] Last Admin: 03/25/18 08:34 Dose: 0.1 mg Glipizide (Glucotrol) 10 mg PO DAILY [facility] Last Admin: 03/25/18 08:34 Dose: 10 mg Hydrochlorothiazide (Microzide) 12.5 mg PO DAILY [facility] Last Admin: 03/25/18 08:34 Dose: 12.5 mg Levofloxacin/Dextrose (Levaquin 500mg) 500 mg in 100 mls @ 100 mls/hr IVPB DAILY [facility] PRN Reason: Protocol Last Admin: 03/25/18 08:31 Dose: 100 mls/hr Promethazine HCl/Dextromethorphan (Phenergan Dm Syrup) 5 ml PO Q6 PRN PRN Reason: Cough - Labs Labs: 03/26/18 05:10 03/26/18 05:10 PT 12.5 Seconds (9.8-13.1) 03/25/18 04:20 INR 1.1 (0.9-1.2) 03/25/18 04:20 APTT 38.1 Seconds (25.6-37.1) H 03/25/18 04:20 Assessment and Plan (1) Non-ST elevation [place] (NSTEMI) Status: Acute (2) Pneumonia Status: Acute (3) HTN (hypertension) Status: Acute
[2018-03-26 16:01] VITALS: BP 134/82; PULSE 89; RESP 20; O2SAT 96
[2018-03-26] MEDS: levoFLOXacin 500 mg in D5W 500 MG/100 ML BAG IVPB SCH (17:12)
== END 2018-03-26 18:45 | disposition home or self-care (01) | DRG 121 ==
LOC: H.ER 19:25 → H.ERHOLD 23:53 → H.TEL 03-24 06:37 → H.ERHOLD 03-24 10:11 → H.TEL 03-24 10:11
PROVIDERS: ADMIT Family Medicine; ATTEND Family Medicine
PROC: 3E0234Z Introduction of Serum, Toxoid and Vaccine into Muscle, Percutaneous Approach (ICD-10-PCS; principal; 2018-03-24)
PROC: 4A023N7 Measurement of Cardiac Sampling and Pressure, Left Heart, Percutaneous Approach (ICD-10-PCS; 2018-03-26)
PROC: B205YZZ Plain Radiography of Left Heart using Other Contrast (ICD-10-PCS; 2018-03-26)
DX: I21.4 Non-ST elevation (NSTEMI) myocardial infarction (principal); J15.9 Unspecified bacterial pneumonia; I12.0 Hypertensive chronic kidney disease with stage 5 chronic kidney disease or end stage renal disease; E11.22 Type 2 diabetes mellitus with diabetic chronic kidney disease; Z88.0 Allergy status to penicillin; Z87.891 Personal history of nicotine dependence; Z93.3 Colostomy status; J45.909 Unspecified asthma, uncomplicated; Z88.6 Allergy status to analgesic agent; Z23 Encounter for immunization; E78.00 Pure hypercholesterolemia, unspecified

== ENCOUNTER 2018-04-10 14:42 | Observation (INO) | payer MEDICAID ==
[2018-04-10 14:43] VITALS: BMI 34.7
--- NOTE | 2018-04-10 15:26 | ED PDOC ---
HPI: SOB/CHF/COPD Time Seen by Provider: 04/10/18 15:09 Chief Complaint (Nursing): Shortness Of Breath Chief Complaint (Provider): Shortness Of Breath History Per: Patient History/Exam Limitations: no limitations Onset/Duration Of Symptoms: Persistent (x2 weeks) Current Symptoms Are (Timing): Still Present Additional Complaint(s): 62 year old female with medical history of diabetes, hypertension, hypercholesterolemia and asthma, referred to the emergency department by PMD to evaluate a persistent pneumonia infection. Patient was initially diagnosed with pneumonia on 03/23/18 and prescribed Levaquin. She states completion of the ABX , had a repeated xray performed yesterday and notified today that the infection was still active, prompting ED visit. She reports experiencing a fever last night (tmax: 101.1 degrees) with some shortness of breath on exertion. Patient denies any cough or chest pain. PMD: Crow Vasques MD Past Medical History Reviewed: Historical Data, Nursing Documentation, Vital Signs Vital Signs: Last Vital Signs Temp 98.3 F 04/10/18 14:46 Pulse 110 H 04/10/18 14:46 Resp 24 04/10/18 14:46 BP 105/63 04/10/18 14:46 Pulse Ox 94 L 04/10/18 17:27 - Medical History PMH: Asthma, Diabetes, Diverticulitis, HTN, Hypercholesterolemia Denies: HIV, Chronic Kidney Disease - Surgical History Surgical History: Cholecystectomy - Family History Family History: States: Unknown Family Hx - Home Medications Home Medications: Ambulatory Orders Medication Instructions Recorded Allopurinol [Zyloprim] 100 mg PO DAILY 03/24/18 Atorvastatin [Lipitor] 20 mg PO DAILY 03/24/18 Famotidine [Pepcid] 20 mg PO DAILY 03/24/18 Fludrocortisone [Florinef] 0.1 mg PO DAILY 03/24/18 GlipiZIDE [Glucotrol] 10 mg PO DAILY 03/24/18 Hydrochlorothiazide [Microzide] 12.5 mg PO DAILY 03/24/18 amLODIPine [Norvasc] 2.5 mg PO DAILY 03/24/18 Aspirin [Aspirin Chewable] 81 mg PO DAILY #30 chew 03/26/18 Albuterol 0.083% [Albuterol 0.083% 3 ml IH Q6 PRN 04/10/18 Inhal Roxanne (2.5 mg/3 ml) UD] Albuterol Sulfate [Ventolin Hfa] 2 puff IH Q6 PRN 04/10/18 Multivitamin [Multi-Vitamin Daily] 1 tab PO DAILY 04/10/18 - Allergies Allergies/Adverse Reactions: Allergies Allergy/AdvReac Type Severity Reaction Status Date / Time Penicillins Allergy Intermediate ITCHING Verified 04/10/18 14:46 tramadol AdvReac ITCHING Verified 04/10/18 14:46 Review of Systems ROS Statement: Except As Marked, All Systems Reviewed And Found Negative Constitutional: Positive for: Fever (tmax: 101.1 degrees) Respiratory: Positive for: SOB with Exertion. Negative for: Cough, Shortness of Breath Physical Exam - Reviewed Nursing Documentation Reviewed: Yes Vital Signs Reviewed: Yes - Physical Exam Appears: Positive for: No Acute Distress Head Exam: Positive for: ATRAUMATIC, NORMAL INSPECTION, NORMOCEPHALIC Skin: Positive for: Normal Color Eye Exam: Positive for: Normal appearance Cardiovascular/Chest: Positive for: Chest Non Tender, Tachycardia (with regular rhythm). Negative for: Regular Rate, Rhythm Respiratory: Positive for: Normal Breath Sounds. Negative for: Wheezing, Respiratory Distress Gastrointestinal/Abdominal: Positive for: Normal Exam, Soft. Negative for: Tenderness Extremity: Positive for: Normal ROM (upper/lower) Neurologic/Psych: Positive for: Alert (x3), Oriented. Negative for: Motor/ Sensory Deficits - Laboratory Results Result Diagrams: 04/10/18 15:50 04/10/18 15:50 - ECG O2 Sat by Pulse Oximetry: 94 (RA) Pulse Ox Interpretation: Normal Medical Decision Making Medical Decision Making: Initial Impression: Pneumonia Initial Plan: * VBG * EKG * CMP * Urine dipstick * CBC * PTT * PT * CXR * Azactam 100ml IVPB * Vancomycin inj 250ml IVPB * Blood culture * Glucose, blood, POC * UA Time: 1555 --CXR FINDINGS: LUNGS: Bibasilar atelectasis. PLEURA: Small left and trace right pleural effusions. No pneumothorax apparent. CARDIOVASCULAR: Atherosclerotic aortic calcifications. Cardiomediastinal silhouette stably enlarged OSSEOUS STRUCTURES: Unchanged. VISUALIZED UPPER ABDOMEN: Upper quadrant surgical clips. OTHER FINDINGS: None. IMPRESSION: Small left and trace right pleural effusions. Time: 1600 --Accucheck: 169 Time: 1627 --Patient will be admitted for persistent pneumonia. --Case discussed with Dr. Arnold. Scribe Attestation: Documented by Susan Huddleston, acting as a scribe for Dr. Francine Gr MD. Provider Scribe Attestation: All medical record entries made by the Scribe were at my direction and personally dictated by me. I have reviewed the chart and agree that the record accurately reflects my personal performance of the history, physical exam, medical decision making, and the department course for this patient. I have also personally directed, reviewed, and agree with the discharge instructions and disposition. Disposition - Clinical Impression Clinical Impression: Pneumonia, UTI (urinary tract infection) - Patient ED Disposition Is Patient to be Admitted: Yes - Disposition Disposition Time: 16:27 Condition: STABLE - Pt Status Changed To: Hospital Disposition Of: Observation - POA Present On Arrival: None
[2018-04-10] MEDS ORDERED: Vancomycin 1 g Inj ONE (15:38)
[2018-04-10] MEDS ORDERED: Aztreonam 2 GM in Sodium Chloride 0.9% 100 ML IVPB ONE (16:00)
--- NOTE | 2018-04-10 16:11 | RAD ---
HISTORY: CP COMPARISON: Chest radiograph dated 03/23/2018. TECHNIQUE: Chest PA and lateral FINDINGS: LUNGS: Bibasilar atelectasis. PLEURA: Small left and trace right pleural effusions. No pneumothorax apparent. CARDIOVASCULAR: Atherosclerotic aortic calcifications. Cardiomediastinal silhouette stably enlarged OSSEOUS STRUCTURES: Unchanged. VISUALIZED UPPER ABDOMEN: Upper quadrant surgical clips. OTHER FINDINGS: None. IMPRESSION: Small left and trace right pleural effusions.
[2018-04-10 16:12] LABS: VENOUS BLOOD GAS BASE EXCESS 6.3 mmol/L (0.0-2.0); VENOUS BLOOD GAS PCO2 64 mmHg (40-60); VENOUS BLOOD GAS PO2 23 mm/Hg (30-55); VENOUS BLOOD PH 7.33 (7.32-7.43)
[2018-04-10 16:15] LABS: BASO # 0.1 K/uL (0.0-0.2); EOS # 0.2 K/uL (0.0-0.7); EOS % 2.3 % (0.0-4.0); HEMOGLOBIN 9.5 g/dL (12.0-16.0); LYMPH # 1.4 K/uL (1.0-4.3); LYMPH % 16.9 % (20.0-40.0); MEAN CORPUSCULAR HEMOGLOBIN 28.5 pg (27.0-31.0); MEAN CORPUSCULAR HGB CONC 33.2 g/dL (33.0-37.0); MEAN PLATELET VOLUME 7.3 fl (7.2-11.7); MONO # 0.5 K/uL (0.0-0.8); MONO % 6.2 % (0.0-10.0); NEUT # 6.2 K/uL (1.8-7.0); NEUT % 73.6 % (50.0-75.0); NRBC % 0.1 % (0.0-0.0); RBC 3.32 Mil/uL (3.80-5.20); WHITE BLOOD COUNT 8.4 K/uL (4.8-10.8)
[2018-04-10 16:22] LABS: INR 1.2 (0.9-1.2); PARTIAL THROMBOPLASTIN TIME 38.4 Seconds (25.6-37.1); PROTHROMBIN TIME 13.8 Seconds (9.8-13.1); SQUAMOUS EPITHIAL 10 /hpf (0-5); URINE BILIRUBIN NEGATIVE (NEGATIVE); URINE BLOOD SMALL (NEGATIVE); URINE CLARITY CLOUDY (Clear); URINE COLOR YELLOW (YELLOW); URINE GLUCOSE (UA) NEG (Normal); URINE LEUKOCYTE ESTERASE MOD Leu/uL (Negative); URINE PROTEIN 100 mg/dL (NEGATIVE); URINE UROBILINOGEN 0.2-1.0 mg/dL (0.2-1.0)
[2018-04-10 16:25] LABS: URINE BACTERIA OCC (<OCC)
[2018-04-10 16:26] LABS: ALB/GLOB RATIO 1.2 (1.0-2.1); CALCIUM 9.1 mg/dL (8.4-10.2)
[2018-04-10] MEDS ORDERED: Albuterol 0.083% Inhal Sol (2.5 mg/3 mL) UD IH PRN (18:59)
[2018-04-10] MEDS ORDERED: Albuterol HFA 90 mcg/actuation (8 g) IH PRN (18:59)
[2018-04-10 19:44] LABS: VENOUS BLOOD GAS BASE EXCESS 6.9 mmol/L (0.0-2.0); VENOUS BLOOD GAS PCO2 52 mmHg (40-60); VENOUS BLOOD GAS PO2 21 mm/Hg (30-55); VENOUS BLOOD PH 7.41 (7.32-7.43)
[2018-04-11] MEDS: Aztreonam 2 GM in Sodium Chloride 0.9% 100 ML IVPB SCH ×2 (01:41→09:15)
[2018-04-11 07:42] LABS: BASO # 0.1 K/uL (0.0-0.2); BASO % 0.7 % (0.0-2.0); EOS # 0.3 K/uL (0.0-0.7); EOS % 3.4 % (0.0-4.0); HEMOGLOBIN 9.7 g/dL (12.0-16.0); LYMPH % 22.5 % (20.0-40.0); MEAN CELL VOLUME 85.9 fl (81.0-99.0); MEAN CORPUSCULAR HEMOGLOBIN 28.8 pg (27.0-31.0); MEAN CORPUSCULAR HGB CONC 33.5 g/dL (33.0-37.0); MEAN PLATELET VOLUME 7.1 fl (7.2-11.7); MONO # 0.7 K/uL (0.0-0.8); MONO % 8.3 % (0.0-10.0); NEUT # 5.6 K/uL (1.8-7.0); NEUT % 65.1 % (50.0-75.0); RBC 3.36 Mil/uL (3.80-5.20); RED CELL DISTRIBUTION WIDTH 15.2 % (11.5-14.5); WHITE BLOOD COUNT 8.7 K/uL (4.8-10.8)
[2018-04-11 07:49] LABS: ALB/GLOB RATIO 1.1 (1.0-2.1); ALBUMIN 3.7 g/dL (3.5-5.0); CALCIUM 9.2 mg/dL (8.4-10.2)
[2018-04-11 08:05] VITALS: BP 106/72; PULSE 88; RESP 19; TEMP 98.5; O2SAT 95
--- NOTE | 2018-04-11 08:05 | CP.PCM.HP ---
History of Present Illness - History of Present Illness History of Present Illness: pt admitted for persistent pna -lll- despite outpt levaquin/avelox tx. denies f/ c, n/v/d, cough/congestion at present. 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 all bw and imaging noted. pt feels good at present. Present on Admission - Present on Admission Any Indicators Present on Admission: Yes History of Uncontrolled Diabetes: Yes Review of Systems - Constitutional Constitutional: As Per HPI, Fever - Respiratory Respiratory: As Per HPI, Dyspnea on Exertion Additional comments: mild Past Patient History - Past Medical History & Family History Past Medical History?: Yes - Past Social History Smoking Status: Former Smoker - CARDIAC Hx Cardiac Disorders: Yes Hx Hypercholesterolemia: Yes Hx Hypertension: Yes - PULMONARY Hx Respiratory Disorders: Yes Hx Asthma: Yes - NEUROLOGICAL Hx Neurological Disorder: No - HEENT Hx HEENT Problems: No - RENAL Hx Chronic Kidney Disease: No - ENDOCRINE/METABOLIC Hx Endocrine Disorders: Yes (DM, Diverticulosis) - HEMATOLOGICAL/ONCOLOGICAL Hx Blood Disorders: No Hx Human Immunodeficiency Virus (HIV): No - INTEGUMENTARY Hx Dermatological Problems: No - MUSCULOSKELETAL/RHEUMATOLOGICAL Hx Musculoskeletal Disorders: No Hx Falls: No - GASTROINTESTINAL Hx Gastrointestinal Disorders: Yes Hx Colostomy: Yes (Right colostomy) Hx Diverticulitis: Yes - GENITOURINARY/GYNECOLOGICAL Hx Genitourinary Disorders: No - PSYCHIATRIC Hx Psychophysiologic Disorder: No Hx Substance Use: No - SURGICAL HISTORY Hx Surgeries: Yes Hx Cholecystectomy: Yes - ANESTHESIA Hx Anesthesia: Yes Hx Anesthesia Reactions: No Meds Allergies/Adverse Reactions: Allergies Allergy/AdvReac Type Severity Reaction Status Date / Time Penicillins Allergy Intermediate ITCHING Verified 04/10/18 14:46 tramadol AdvReac ITCHING Verified 04/10/18 14:46 Physical Exam - Constitutional Appears: Well, Non-toxic, No Acute Distress - Head Exam Head Exam: ATRAUMATIC, NORMAL INSPECTION, NORMOCEPHALIC - Eye Exam Eye Exam: EOMI, Normal appearance, PERRL Pupil Exam: NORMAL ACCOMODATION, PERRL - ENT Exam ENT Exam: Mucous Membranes Moist, Normal Exam - Neck Exam Neck exam: Positive for: Normal Inspection - Respiratory Exam Respiratory Exam: Clear to Auscultation Bilateral, NORMAL BREATHING PATTERN - Cardiovascular Exam Cardiovascular Exam: REGULAR RHYTHM, RRR, +S1, +S2 - GI/Abdominal Exam GI & Abdominal Exam: Normal Bowel Sounds, Soft. absent: Tenderness - Extremities Exam Extremities exam: Positive for: full ROM, normal capillary refill, normal inspection, pedal pulses present - Back Exam Back exam: NORMAL INSPECTION - Neurological Exam Neurological exam: Alert, CN II-XII Intact, Normal Gait, Oriented x3, Reflexes Normal - Psychiatric Exam Psychiatric exam: Normal Affect, Normal Mood - Skin Skin Exam: Dry, Intact, Normal Color, Warm Results - Vital Signs Recent Vital Signs: Last Vital Signs Temp 98.4 F 04/11/18 00:07 Pulse 98 H 04/11/18 00:07 Resp 18 04/11/18 00:07 BP 123/71 04/11/18 00:07 Pulse Ox 97 04/11/18 00:07 - Labs Result Diagrams: 04/10/18 15:50 04/11/18 06:30 Labs: Laboratory Results - last 24 hr 04/10/18 04/10/18 04/10/18 15:34 15:50 15:50 WBC 8.4 RBC 3.32 L Hgb 9.5 L Hct 28.5 L MCV 86.0 MCH 28.5 MCHC 33.2 RDW 16.0 H Plt Count 504 H D MPV 7.3 Neut % (Auto) 73.6 Lymph % (Auto) 16.9 L Casey % (Auto) 6.2 Eos % (Auto) 2.3 Baso % (Auto) 1.0 Neut # (Auto) 6.2 Lymph # (Auto) 1.4 Casey # (Auto) 0.5 Eos # (Auto) 0.2 Baso # (Auto) 0.1 PT INR APTT pO2 23 L VBG pH 7.33 VBG pCO2 64 H VBG HCO3 28.6 VBG Total CO2 35.7 H VBG O2 Sat (Calc) 38.1 L VBG Base Excess 6.3 H VBG Potassium 4.6 Sodium 140.0 144 Chloride 107.0 102 Glucose 177 H Lactate 3.0 H FiO2 21.0 Crit Value Called To Dr hero taylor Crit Value Called By Samy Crit Value Read Back Y Blood Gas Notified Time 1612 Potassium 4.4 Carbon Dioxide 27 Anion Gap 19 BUN 23 H Creatinine 1.3 H Est GFR ( Amer) 50 Est GFR (Non-Af Amer) 41 POC Glucose (mg/dL) Random Glucose 166 H Calcium 9.1 Total Bilirubin 0.6 AST 37 H D ALT 45 Alkaline Phosphatase 166 H D Total Protein 7.4 Albumin 4.0 Globulin 3.4 Albumin/Globulin Ratio 1.2 Venous Blood Potassium 4.6 Urine Color Urine Clarity Urine pH Ur Specific [place] Urine Protein Urine Glucose (UA) Urine Ketones Urine Blood Urine Nitrate Urine Bilirubin Urine Urobilinogen Ur Leukocyte Esterase Urine RBC (Auto) Urine Microscopic WBC Ur Squamous Epith Cells Urine Bacteria Hyaline Casts 04/10/18 04/10/18 04/10/18 15:50 15:50 15:57 WBC RBC Hgb Hct MCV MCH MCHC RDW Plt Count MPV Neut % (Auto) Lymph % (Auto) Casey % (Auto) Eos % (Auto) Baso % (Auto) Neut # (Auto) Lymph # (Auto) Casey # (Auto) Eos # (Auto) Baso # (Auto) PT 13.8 H INR 1.2 APTT 38.4 H pO2 VBG pH VBG pCO2 VBG HCO3 VBG Total CO2 VBG O2 Sat (Calc) VBG Base Excess VBG Potassium Sodium Chloride Glucose Lactate FiO2 Crit Value Called To Crit Value Called By Crit Value Read Back Blood Gas Notified Time Potassium Carbon Dioxide Anion Gap BUN Creatinine Est GFR ( Amer) Est GFR (Non-Af Amer) POC Glucose (mg/dL) 169 H Random Glucose Calcium Total Bilirubin AST ALT Alkaline Phosphatase Total Protein Albumin Globulin Albumin/Globulin Ratio Venous Blood Potassium Urine Color Yellow Urine Clarity Cloudy Urine pH 5.0 Ur Specific [place] 1.019 Urine Protein 100 Urine Glucose (UA) Neg Urine Ketones Negative Urine Blood Small Urine Nitrate Negative Urine Bilirubin Negative Urine Urobilinogen 0.2-1.0 Ur Leukocyte Esterase Mod Urine RBC (Auto) 13 H Urine Microscopic WBC 17 H Ur Squamous Epith Cells 10 H Urine Bacteria Occ H Hyaline Casts 3-5 H 04/10/18 04/10/18 04/10/18 19:38 21:35 22:37 WBC RBC Hgb Hct MCV MCH MCHC RDW Plt Count MPV Neut % (Auto) Lymph % (Auto) Casey % (Auto) Eos % (Auto) Baso % (Auto) Neut # (Auto) Lymph # (Auto) Casey # (Auto) Eos # (Auto) Baso # (Auto) PT INR APTT pO2 21 L VBG pH 7.41 VBG pCO2 52 VBG HCO3 28.6 VBG Total CO2 34.6 H VBG O2 Sat (Calc) 36.3 L VBG Base Excess 6.9 H VBG Potassium 4.8 Sodium 140.0 Chloride 108.0 H Glucose 93 Lactate 0.8 FiO2 21.0 Crit Value Called To Crit Value Called By Crit Value Read Back Blood Gas Notified Time Potassium Carbon Dioxide Anion Gap BUN Creatinine Est GFR ( Amer) Est GFR (Non-Af Amer) POC Glucose (mg/dL) 53 L 157 H Random Glucose Calcium Total Bilirubin AST ALT Alkaline Phosphatase Total Protein Albumin Globulin Albumin/Globulin Ratio Venous Blood Potassium 4.8 Urine Color Urine Clarity Urine pH Ur Specific [place] Urine Protein Urine Glucose (UA) Urine Ketones Urine Blood Urine Nitrate Urine Bilirubin Urine Urobilinogen Ur Leukocyte Esterase Urine RBC (Auto) Urine Microscopic WBC Ur Squamous Epith Cells Urine Bacteria Hyaline Casts 04/11/18 06:30 WBC RBC Hgb Hct MCV MCH MCHC RDW Plt Count MPV Neut % (Auto) Lymph % (Auto) Casey % (Auto) Eos % (Auto) Baso % (Auto) Neut # (Auto) Lymph # (Auto) Casey # (Auto) Eos # (Auto) Baso # (Auto) PT INR APTT pO2 VBG pH VBG pCO2 VBG HCO3 VBG Total CO2 VBG O2 Sat (Calc) VBG Base Excess VBG Potassium Sodium 146 Chloride 105 Glucose Lactate FiO2 Crit Value Called To Crit Value Called By Crit Value Read Back Blood Gas Notified Time Potassium 4.3 Carbon Dioxide 30 Anion Gap 15 BUN 20 H Creatinine 1.2 Est GFR ( Amer) 55 Est GFR (Non-Af Amer) 45 POC Glucose (mg/dL) Random Glucose 104 Calcium 9.2 Total Bilirubin 0.4 AST 38 H ALT 42 Alkaline Phosphatase 168 H Total Protein 7.0 Albumin 3.7 Globulin 3.3 Albumin/Globulin Ratio 1.1 Venous Blood Potassium Urine Color Urine Clarity Urine pH Ur Specific [place] Urine Protein Urine Glucose (UA) Urine Ketones Urine Blood Urine Nitrate Urine Bilirubin Urine Urobilinogen Ur Leukocyte Esterase Urine RBC (Auto) Urine Microscopic WBC Ur Squamous Epith Cells Urine Bacteria Hyaline Casts Assessment & Plan (1) Pneumonia Assessment and Plan: azactam/vanco albuterol prn. dc on doxy Status: Acute (2) DVT prophylaxis Assessment and Plan: scd and aehose ambulation Status: Acute Decision To Admit - Pt Status Changed To: Hospital Disposition Of: Observation - . Bed Request Type: Med/Surg Admitting Physician: Jerome Arnold
[2018-04-11] MEDS ORDERED: Multivitamin With Minerals Tab PO SCH (09:00)
--- NOTE | 2018-04-11 12:59 | CP.PCM.DIS ---
Provider - Provider Date of Admission: 04/10/18 16:27 Attending physician: Jerome Arnold MD Time Spent in preparation of Discharge (in minutes): 15 Diagnosis - Discharge Diagnosis (1) Pneumonia Status: Acute (2) DVT prophylaxis Status: Acute Hospital Course - Lab Results Lab Results: Most Recent Lab Values WBC 8.7 K/uL (4.8-10.8) 04/11/18 06:30 RBC 3.36 Mil/uL (3.80-5.20) L 04/11/18 06:30 Hgb 9.7 g/dL (12.0-16.0) L 04/11/18 06:30 Hct 28.9 % (34.0-47.0) L 04/11/18 06:30 MCV 85.9 fl (81.0-99.0) 04/11/18 06:30 MCH 28.8 pg (27.0-31.0) 04/11/18 06:30 MCHC 33.5 g/dL (33.0-37.0) 04/11/18 06:30 RDW 15.2 % (11.5-14.5) H 04/11/18 06:30 Plt Count 526 K/uL (130-400) H 04/11/18 06:30 MPV 7.1 fl (7.2-11.7) L 04/11/18 06:30 Neut % (Auto) 65.1 % (50.0-75.0) 04/11/18 06:30 Lymph % (Auto) 22.5 % (20.0-40.0) 04/11/18 06:30 Weber % (Auto) 8.3 % (0.0-10.0) 04/11/18 06:30 Eos % (Auto) 3.4 % (0.0-4.0) 04/11/18 06:30 Baso % (Auto) 0.7 % (0.0-2.0) 04/11/18 06:30 Neut # (Auto) 5.6 K/uL (1.8-7.0) 04/11/18 06:30 Lymph # (Auto) 2.0 K/uL (1.0-4.3) 04/11/18 06:30 Weber # (Auto) 0.7 K/uL (0.0-0.8) 04/11/18 06:30 Eos # (Auto) 0.3 K/uL (0.0-0.7) 04/11/18 06:30 Baso # (Auto) 0.1 K/uL (0.0-0.2) 04/11/18 06:30 PT 13.8 Seconds (9.8-13.1) H 04/10/18 15:50 INR 1.2 (0.9-1.2) 04/10/18 15:50 APTT 38.4 Seconds (25.6-37.1) H 04/10/18 15:50 pO2 21 mm/Hg (30-55) L 04/10/18 19:38 VBG pH 7.41 (7.32-7.43) 04/10/18 19:38 VBG pCO2 52 mmHg (40-60) 04/10/18 19:38 VBG HCO3 28.6 mmol/L 04/10/18 19:38 VBG Total CO2 34.6 mmol/L (22-28) H 04/10/18 19:38 VBG O2 Sat (Calc) 36.3 % (40-65) L 04/10/18 19:38 VBG Base Excess 6.9 mmol/L (0.0-2.0) H 04/10/18 19:38 VBG Potassium 4.8 mmol/L (3.6-5.2) 04/10/18 19:38 Sodium 140.0 mmol/L (132-148) 04/10/18 19:38 Chloride 108.0 mmol/L (98-107) H 04/10/18 19:38 Glucose 93 mg/dL (65-105) 04/10/18 19:38 Lactate 0.8 mmol/L (0.7-2.1) 04/10/18 19:38 FiO2 21.0 % 04/10/18 19:38 Crit Value Called To Dr hero taylor 04/10/18 15:34 Crit Value Called By Samy 04/10/18 15:34 Crit Value Read Back Y 04/10/18 15:34 Blood Gas Notified Time 1612 04/10/18 15:34 Sodium 146 mmol/l (132-148) 04/11/18 06:30 Potassium 4.3 MMOL/L (3.6-5.0) 04/11/18 06:30 Chloride 105 mmol/L (98-107) 04/11/18 06:30 Carbon Dioxide 30 mmol/L (22-30) 04/11/18 06:30 Anion Gap 15 (10-20) 04/11/18 06:30 BUN 20 mg/dl (7-17) H 04/11/18 06:30 Creatinine 1.2 mg/dl (0.7-1.2) 04/11/18 06:30 Est GFR ( Amer) 55 04/11/18 06:30 Est GFR (Non-Af Amer) 45 04/11/18 06:30 POC Glucose (mg/dL) 132 mg/dL (65-110) H 04/11/18 11:09 Random Glucose 104 mg/dL (65-105) 04/11/18 06:30 Calcium 9.2 mg/dL (8.4-10.2) 04/11/18 06:30 Total Bilirubin 0.4 mg/dl (0.2-1.3) 04/11/18 06:30 AST 38 U/L (14-36) H 04/11/18 06:30 ALT 42 U/L (9-52) 04/11/18 06:30 Alkaline Phosphatase 168 U/L (38-126) H 04/11/18 06:30 Total Protein 7.0 G/DL (6.3-8.2) 04/11/18 06:30 Albumin 3.7 g/dL (3.5-5.0) 04/11/18 06:30 Globulin 3.3 gm/dL (2.2-3.9) 04/11/18 06:30 Albumin/Globulin Ratio 1.1 (1.0-2.1) 04/11/18 06:30 Venous Blood Potassium 4.8 mmol/L (3.6-5.2) 04/10/18 19:38 Urine Color Yellow (YELLOW) 04/10/18 15:50 Urine Clarity Cloudy (Clear) 04/10/18 15:50 Urine pH 5.0 (5.0-8.0) 04/10/18 15:50 Ur Specific [place] 1.019 (1.003-1.030) 04/10/18 15:50 Urine Protein 100 mg/dL (NEGATIVE) 04/10/18 15:50 Urine Glucose (UA) Neg mg/dL (Normal) 04/10/18 15:50 Urine Ketones Negative mg/dL (NEGATIVE) 04/10/18 15:50 Urine Blood Small (NEGATIVE) 04/10/18 15:50 Urine Nitrate Negative (NEGATIVE) 04/10/18 15:50 Urine Bilirubin Negative (NEGATIVE) 04/10/18 15:50 Urine Urobilinogen 0.2-1.0 mg/dL (0.2-1.0) 04/10/18 15:50 Ur Leukocyte Esterase Mod Sylvie/uL (Negative) 04/10/18 15:50 Urine RBC (Auto) 13 /hpf (0-3) H 04/10/18 15:50 Urine Microscopic WBC 17 /hpf (0-5) H 04/10/18 15:50 Ur Squamous Epith Cells 10 /hpf (0-5) H 04/10/18 15:50 Urine Bacteria Occ (<OCC) H 04/10/18 15:50 Hyaline Casts 3-5 /hpf (0-2) H 04/10/18 15:50 - Hospital Course Hospital Course: anbx, monitor Discharge Exam - Head Exam Head Exam: ATRAUMATIC, NORMAL INSPECTION, NORMOCEPHALIC Discharge Plan - Discharge Medications Prescriptions: Cefuroxime Axetil [Cefuroxime] 500 mg PO BID #10 tablet Doxycycline Monohydrate 100 mg PO BID #10 tablet - Follow Up Plan Condition: STABLE Disposition: HOME/ ROUTINE Additional Instructions: per rn doing well, no sob/cough. ambulatory w/ steady gait, no sob w/ ambulation. no f/c, n/v/d. d/c w/ pt her allergy to pcn states 40 yrs ago had small rash. will give cefuroxime. pt advised to observe for rash, sob or any other s/s allergy and call 911 if any occur doxycycline and bacid given as well f/u rmg friday, rted prn, med spe rmed rec outpt pulm
--- NOTE | 2018-04-13 10:30 | CARD ---
APPROVED REPORT EKG Measurement Heart [id number] <Conclusion> Sinus tachycardia with occasional premature ventricular complexes Low voltage QRS Cannot rule out Anterior infarct, age undetermined Abnormal ECG
== END 2018-04-11 14:41 | disposition home or self-care (01) ==
LOC: H.ER 14:42 → H.ERHOLD 16:27 → H.MEDSURG1 21:10
PROVIDERS: ADMIT Family Medicine; ATTEND Family Medicine
DX: J18.9 Pneumonia, unspecified organism (principal); N39.0 Urinary tract infection, site not specified; J44.0 Chronic obstructive pulmonary disease with (acute) lower respiratory infection; E11.9 Type 2 diabetes mellitus without complications; I10 Essential (primary) hypertension; E78.00 Pure hypercholesterolemia, unspecified; Z93.3 Colostomy status; Z87.891 Personal history of nicotine dependence; Z79.84 Long term (current) use of oral hypoglycemic drugs; Z88.0 Allergy status to penicillin
CPT/HCPCS: 36415; 71046; 80053; 81003; 82803; 82948; 85025; 85610; 85730; 87040; 93005; 99284; G0378